=== PATIENT | male | born 1995 | race Caucasian/White ===

== ENCOUNTER 2018-09-03 10:57 | Day surgery (SDC) | payer OTHER ==
[2018-08-30 15:50] VITALS: BMI 27.4
[~2018-09-03 10:57] MED LIST: LACTATED RINGERS 1,000 ML IV SCH; LIDOCAINE 1% 20 ML VIAL (10MG/ML) FOR IV START INTRADERMA PRN; MIDAZOLAM 2 MG/2 ML VIAL IV PRN
[2018-09-03 12:39] VITALS: RESP 16; TEMP 98.7
[2018-09-03] MEDS ORDERED: PROPOFOL 10 MG/ML 20 ML VIAL IV ONE (14:10)
[2018-09-03 14:57] VITALS: BP 104/59; PULSE 67
--- NOTE | 2018-09-03 14:58 | P.PCN ---
Date of Procedure: 09/03/18 Procedure(s) Performed: Procedure: Colonoscopy and biopsy. Preoperative diagnosis: Bloody diarrhea. Postoperative diagnosis: Left-sided colitis probably representing ulcerative colitis. Preparation: HalfLytely prep. Sedation: Was provided by anesthesia. Brief clinical history: The patient is a 23-year-old male who was evaluated in the office last week because of bloody diarrhea of around 1-2 weeks duration. The patient is scheduled for this evaluation for suspected ulcerative colitis. Procedure: With the patient on his left lateral decubitus position and after informed consent and adequate sedation, the perianal area was inspected and it did not show any fissures or fistulas. There were no masses felt on digital rectal examination. The Olympus CFH 190L video colonoscope was then inserted in the rectum in the usual fashion and advanced to the cecum. I intubated the ileocecal valve and examined the terminal ileum. The terminal ileum was not involved so was the right colon, transverse colon and the proximal descending. Starting at around 50-60 cm and involving the left side and rectum, the mucosa showed edema, erythema, granularity, friability, exudation and spontaneous bleeding. Proximal to the area of involvement as mentioned, the mucosa appeared healthy. I obtained a picture and multiple biopsies in the sigmoid then the endoscope was withdrawn. The patient tolerated the procedure well. Plan: I discussed the findings with the patient and his dad. While awaiting the biopsy results, I would suggest that we treat as ulcerative colitis of moderate to severe activity. Certainly, infectious etiology and other causes of colitis to be kept in mind. I will keep you updated on his progress.
== END 2018-09-03 15:35 | disposition home or self-care (01) ==
LOC: ORWHC2ENDO 10:57
DX: K51.511 Left sided colitis with rectal bleeding (principal); K21.9 Gastro-esophageal reflux disease without esophagitis; Z79.1 Long term (current) use of non-steroidal anti-inflammatories (NSAID)
CPT/HCPCS: 45380; 88305; J2704

== ENCOUNTER 2018-09-07 15:22 | Inpatient (IN) | payer OTHER ==
[2018-09-07] MEDS ORDERED: SODIUM CHLORIDE 0.9% 500 ML 500 ML IV STA (18:18)
[2018-09-07] MEDS ORDERED: ASPIRIN 81 MG PO STA (18:18)
--- NOTE | 2018-09-07 18:31 | XR ---
EXAMINATION: XR chest 2V DATE AND TIME: 09/07/2018 6:15 PM CLINICAL INDICATION: PHH; Pain TECHNIQUE: Departmental protocol COMPARISON: None FINDINGS: The lungs are clear. The pleural spaces are negative. The cardiac silhouette is not enlarged. The remainder of the mediastinal silhouette is unremarkable. The skeletal structures and soft tissues are negative for acute findings. IMPRESSION: NO ACUTE PROCESS.
--- NOTE | 2018-09-07 19:08 | ED ---
General Adult HPI - General Source: patient, RN notes reviewed, old records reviewed Mode of arrival: ambulatory Limitations: no limitations <Bishop Nguyen - Last Filed: 09/07/18 23:47> <John Easton - Last Filed: 09/09/18 08:29> - General Chief complaint: Chest Pain Stated complaint: Chest pain Time Seen by Provider: 09/07/18 18:01 - History of Present Illness Initial comments: 23-year-old male patient with past history of ulcerative colitis presents ED with chief complaint of chest pain. Patient reports that approximately 3 PM today he began experiencing left parasternal chest pain which radiates down his left arm. Patient describes the pain as a sharp stabbing pain. Patient states that the pain is waxing and waning however initially lasted for approximately 1 hour. Patient states that at this time the pain is mostly resolved a very mild dull left parasternal pain is currently present. Patient states this is much improved then had previously was. Patient denies any cough, congestion, nausea vomiting diarrhea, diaphoresis. Patient denies any association with exertion. Denies any pleuritic pain. Patient states that he has had previous complains of chest pain over the past 1 year and has had prior evaluations at [facility] for this. Denies any other complaints at this time. Systemic: Pt denies fatigue, fever/chills, rash. Pt denies weakness, night sweats, weight loss. Neuro: Pt denies headache, visual disturbances, syncope or pre-syncope. HEENT: Pt denies ocular discharge or irritation, otalgia, rhinorrhea, pharyngitis or notable lymphadenopathy. Cardiopulmonary: Pt denies SOB, heart palpitations, dyspnea on exertion. Abdominal/GI: Pt denies abdominal pain, n/v/d. : Pt denies dysuria, burning w/ urination, frequency/urgency. Denies new onset urinary or bowel incontinence. MSK: Pt denies myalgia, loss of strength or function in extremities. Neuro: Pt denies new onset weakness, paresthesias. (Bishop Nguyen) - Related Data Home Medications Medication Instructions Recorded Confirmed sulfaSALAzine [Azulfidine] 1,000 mg PO QID 09/07/18 09/07/18 Allergies Allergy/AdvReac Type Severity Reaction Status Date / Time No Known Allergies Allergy Verified 06/28/19 18:07 Review of Systems ROS Other: All systems not noted in ROS Statement are negative. <Bishop Nguyen - Last Filed: 09/07/18 23:47> ROS Other: All systems not noted in ROS Statement are negative. <John Easton - Last Filed: 09/09/18 08:29> ROS Statement: Those systems with pertinent positive or pertinent negative responses have been documented in the HPI. Past Medical History Past Medical History: Chest Pain / Angina, GI Bleed Additional Past Medical History / Comment(s): OCC CP, CARDIAC TESTING NL - TOLD POSS GERD, RX DIDN'T HELP. BLOOD IN STOOL FOR PAST WEEK. History of Any Multi-Drug Resistant Organisms: None Reported Additional Past Surgical History / Comment(s): WISDOM TEETH. Past Anesthesia/Blood Transfusion Reactions: No Reported Reaction Past Psychological History: No Psychological Hx Reported Smoking Status: Never smoker Past Alcohol Use History: Occasional Past Drug Use History: None Reported - Past Family History Mother Family Medical History: No Reported History <Bishop Nguyen - Last Filed: 09/07/18 23:47> General Exam Limitations: no limitations <Bishop Nguyen - Last Filed: 09/07/18 23:47> - General Exam Comments Initial Comments: Constitutional: NAD, AOX3, Pt has pleasant affect. HEENT: NC/AT, trachea midline, neck supple, no lymphadenopathy. Posterior pharynx non erythematous, without exudates. External ears appear normal, without discharge. Mucous membranes moist. Eyes PERRLA, EOM intact. There is no scleral icterus. No pallor noted. Cardiopulmonary: RRR, no murmurs, rubs or gallops, no JVD noted. Lungs CTAB in anterior and posterior reyes. No peripheral edema. Abdominal exam: Abdomen soft and non-distended. Abdomen non-tender to palpation in all 4 quadrants. Bowel sounds active in LLQ. No hepatosplenomegaly. No ecchymosis Neuro: CN II-XII grossly intact. No nuchal rigidity. No raccon eyes, no christensen sign, no hemotympanum. No cervical spinal tenderness. MSK: No posterior calf tenderness bilaterally, homans sign negative bilaterally. Posterior tibialis and radial pulse +2 bilaterally. Sensation intact in upper and lower extremities. Full active ROM in upper and lower extremities, 5/5 stregnth. (Bishop Nguyen) Course Vital Signs 09/07/18 09/07/18 09/07/18 16:20 19:14 21:05 Temperature 99.0 F 98.7 F 98.8 F Pulse Rate 89 96 89 Respiratory 18 18 18 Rate Blood Pressure 126/65 134/82 130/74 O2 Sat by Pulse 98 98 96 Oximetry 09/07/18 09/08/18 09/08/18 22:11 00:07 03:21 Temperature 98.9 F 99.0 F 98.2 F Pulse Rate 83 85 80 Respiratory 18 18 17 Rate Blood Pressure 129/80 144/86 128/92 O2 Sat by Pulse 96 96 96 Oximetry 09/08/18 09/08/18 06:48 11:04 Temperature 97.8 F 98.2 F Pulse Rate 56 L 71 Respiratory 18 18 Rate Blood Pressure 115/66 117/76 O2 Sat by Pulse 96 97 Oximetry Medical Decision Making - Lab Data Result diagrams: 09/07/18 18:49 09/07/18 18:49 - EKG Data -: EKG Interpreted by Me (and Dr. Senior) <Bishop Nguyen - Last Filed: 09/07/18 23:47> - Lab Data Result diagrams: 09/07/18 18:49 09/07/18 18:49 <John Easton - Last Filed: 09/09/18 08:29> - Medical Decision Making 23-year-old male patient with past history of ulcerative colitis presents ED with chief complaint of chest pain. Patient reports that approximately 3 PM today he began experiencing left parasternal chest pain which radiates down his left arm. Patient describes the pain as a sharp stabbing pain. Patient states that the pain is waxing and waning however initially lasted for approximately 1 hour. Patient states that at this time the pain is mostly resolved a very mild dull left parasternal pain is currently present. Patient states this is much improved then had previously was. Patient denies any cough, congestion, nausea vomiting diarrhea, diaphoresis. Patient denies any association with exertion. Denies any pleuritic pain. Patient states that he has had previous complains of chest pain over the past 1 year and has had prior evaluations at [facility] for this. Denies any other complaints at this time. Patient doesn't stable, afebrile. Physical exam did not acute pathology. Laboratory investigation revealed mild depressive CBC, CMP. Coagulation studies non-impressive. D-dimer mildly elevated at 0.77. BNP 20. Initial troponin mildly elevated at 0.1. R epeat troponin 3 hours later 0.65. Initial EKG displayed ST elevaton in V2 without recriprocal changes. No significant change from prior EKG on 11/23/17. Repeat EKG is unchanged. Chest x-ray, CT pulmonary angiography did not display acute process. Patient administered 1 dose of Lovenox. Patient is pain-free. Patient will be admitted for May troponins and cardiology consultation. Case discussed with Dr. Senior. (Bishop Nguyen) I saw this patient in conjunction with the physician social science research assistant. I performed independent history and physical exam. Agree with case management. (John Easton) - Lab Data Lab Results 09/07/18 09/07/18 09/07/18 Range/Units 18:49 18:49 18:49 WBC 9.4 (3.8-10.6) k/uL RBC 4.81 (4.30-5.90) m/uL Hgb 14.0 (13.0-17.5) gm/dL Hct 42.7 (39.0-53.0) % MCV 88.6 (80.0-100.0) fL MCH 29.1 (25.0-35.0) pg MCHC 32.8 (31.0-37.0) g/dL RDW 12.5 (11.5-15.5) % Plt Count 327 (150-450) k/uL Neutrophils % 65 % Lymphocytes % 25 % Monocytes % 5 % Eosinophils % 3 % Basophils % 1 % Neutrophils # 6.1 (1.3-7.7) k/uL Lymphocytes # 2.3 (1.0-4.8) k/uL Monocytes # 0.5 (0-1.0) k/uL Eosinophils # 0.3 (0-0.7) k/uL Basophils # 0.1 (0-0.2) k/uL PT 10.7 (9.0-12.0) sec INR 1.0 (<1.2) APTT 24.3 (22.0-30.0) sec D-Dimer 0.77 H (<0.60) mg/L FEU Sodium 142 (137-145) mmol/L Potassium 4.6 (3.5-5.1) mmol/L Chloride 107 (98-107) mmol/L Carbon Dioxide 23 (22-30) mmol/L Anion Gap 12 mmol/L BUN 9 (9-20) mg/dL Creatinine 0.66 (0.66-1.25) mg/dL Est GFR (CKD-EPI)AfAm >90 (>60 ml/min/1.73 sqM) Est GFR (CKD-EPI)NonAf >90 (>60 ml/min/1.73 sqM) Glucose 88 (74-99) mg/dL Calcium 9.6 (8.4-10.2) mg/dL Magnesium 1.9 (1.6-2.3) mg/dL Total Bilirubin 0.4 (0.2-1.3) mg/dL AST 35 (17-59) U/L ALT 42 (21-72) U/L Alkaline Phosphatase 84 (38-126) U/L Troponin I (0.000-0.034) ng/mL NT-Pro-B Natriuret Pep pg/mL Total Protein 7.5 (6.3-8.2) g/dL Albumin 4.5 (3.5-5.0) g/dL 09/07/18 09/07/18 09/07/18 Range/Units 18:49 18:49 22:00 WBC (3.8-10.6) k/uL RBC (4.30-5.90) m/uL Hgb (13.0-17.5) gm/dL Hct (39.0-53.0) % MCV (80.0-100.0) fL MCH (25.0-35.0) pg MCHC (31.0-37.0) g/dL RDW (11.5-15.5) % Plt Count (150-450) k/uL Neutrophils % % Lymphocytes % % Monocytes % % Eosinophils % % Basophils % % Neutrophils # (1.3-7.7) k/uL Lymphocytes # (1.0-4.8) k/uL Monocytes # (0-1.0) k/uL Eosinophils # (0-0.7) k/uL Basophils # (0-0.2) k/uL PT (9.0-12.0) sec INR (<1.2) APTT (22.0-30.0) sec D-Dimer (<0.60) mg/L FEU Sodium (137-145) mmol/L Potassium (3.5-5.1) mmol/L Chloride (98-107) mmol/L Carbon Dioxide (22-30) mmol/L Anion Gap mmol/L BUN (9-20) mg/dL Creatinine (0.66-1.25) mg/dL Est GFR (CKD-EPI)AfAm (>60 ml/min/1.73 sqM) Est GFR (CKD-EPI)NonAf (>60 ml/min/1.73 sqM) Glucose (74-99) mg/dL Calcium (8.4-10.2) mg/dL Magnesium (1.6-2.3) mg/dL Total Bilirubin (0.2-1.3) mg/dL AST (17-59) U/L ALT (21-72) U/L Alkaline Phosphatase (38-126) U/L Troponin I 0.103 H* 0.065 H* (0.000-0.034) ng/mL NT-Pro-B Natriuret Pep 20 pg/mL Total Protein (6.3-8.2) g/dL Albumin (3.5-5.0) g/dL - EKG Data EKG Comments: 1) ventricular rate 83, NV interval 154, QRS 86, QT/QTC 3:30/387. ST elevation in V2. No recripocalchanges.No change from prior EKG on 11/23/17 2) ventricular rate 91, NV interval 176, QRS 92, QT/QTC 336/414. ST elevation in V2, no recriprocal changes. No change from prior EKG on 11/23/17 (Bishop Nguyen) Disposition Is patient prescribed a controlled substance at d/c from ED?: No <Bishop Nguyen - Last Filed: 09/07/18 23:47> <John Easton - Last Filed: 09/09/18 08:29> Clinical Impression: Chest pain Disposition: ADMITTED IP TO THIS [facility] Condition: Serious
[2018-09-07 19:17] LABS: Basophils # (A) 0.1 k/uL (0-0.2); Basophils % (A) 1 %; Eosinophils # (A) 0.3 k/uL (0-0.7); Eosinophils % (A) 3 %; HCT 42.7 % (39.0-53.0); Lymphocytes # (A) 2.3 k/uL (1.0-4.8); Lymphocytes % (A) 25 %; MCH 29.1 pg (25.0-35.0); MCHC 32.8 g/dL (31.0-37.0); MCV 88.6 fL (80.0-100.0); Mean Platelet Volume 8.5; Monocytes # (A) 0.5 k/uL (0-1.0); Monocytes % (A) 5 %; Neutrophils # (A) 6.1 k/uL (1.3-7.7); Neutrophils % (A) 65 %; Platelet Count 327 k/uL (150-450); RBC 4.81 m/uL (4.30-5.90); RDW 12.5 % (11.5-15.5); WBC 9.4 k/uL (3.8-10.6)
[2018-09-07 19:32] LABS: Partial Thromboplastin Time 24.3 sec (22.0-30.0); Prothrombin Time 10.7 sec (9.0-12.0)
[2018-09-07 19:37] LABS: ALT 42 U/L (21-72); AST 35 U/L (17-59); African American GFR (CKD) >90 (>60 ml/min/1.73 sqM); Albumin 4.5 g/dL (3.5-5.0); Alkaline Phosphatase 84 U/L (38-126); Anion Gap 12 mmol/L; Blood Urea Nitrogen 9 mg/dL (9-20); Calcium 9.6 mg/dL (8.4-10.2); Carbon Dioxide 23 mmol/L (22-30); Chloride 107 mmol/L (98-107); Glucose 88 mg/dL (74-99); Magnesium 1.9 mg/dL (1.6-2.3); Potassium 4.6 mmol/L (3.5-5.1); Sodium 142 mmol/L (137-145); Total Bilirubin 0.4 mg/dL (0.2-1.3); Total Protein 7.5 g/dL (6.3-8.2)
[2018-09-07 19:59] LABS: D-Dimer 0.77 mg/L FEU (<0.60)
[2018-09-07] MEDS ORDERED: HEPARIN SODIUM,PORCINE 5,000 UNIT/ML 1 ML VIAL IV ONE (20:23)
[2018-09-07] MEDS ORDERED: HEPARIN SODIUM,PORCINE 5,000 UNIT/ML 1 ML VIAL IV PRN (20:23)
[2018-09-07] MEDS ORDERED: HEPARIN SOD,PORK IN 0.45% NACL 25,000 UNIT in 0.45% NACL 1 250ML.BAG IV SCH (20:30)
[2018-09-07] MEDS ORDERED: NITROGLYCERIN SL TABS 0.4 MG TAB SUBLINGUAL STA (20:55)
--- NOTE | 2018-09-07 21:20 | CT ---
EXAMINATION TYPE: CT chest angio for PE with contrast and with 3-D reconstruction renderings DATE OF EXAM: 09/07/2018 COMPARISON: There is no fracture or intracranial hemorrhage. No mass or mass effect or new attenuatio n defect. HISTORY: chest pain, elevated d-dimer CT DLP: 617.6 mGycm Automated exposure control for dose reduction was used. CONTRAST: CT Chest for pulmonary embolism performed with with IV Contrast, patient injected with 100 mL of Isovue 370. FINDINGS: LUNGS: The lungs are grossly clear, there is no concerning parenchymal mass or nodule identified. T here is no pleural effusion or pneumothorax seen. The tracheobronchial tree is patent. MEDIASTINUM: There is mild-moderate enhancement of the pulmonary artery and its branches, with no CT evidence for pulmonary embolism as seen. No acute aortic findings. There are no greater than 1 cm hil ar or mediastinal lymph nodes. No cardiomegaly. No pericardial effusion is seen. OTHER: No skeletal findings or other additional significant abnormality is seen. IMPRESSION: No acute process.
[2018-09-07] MEDS ORDERED: ENOXAPARIN 80 MG/0.8 ML SYRINGE SQ SCH (21:30)
[2018-09-07] MEDS ORDERED: NITROGLYCERIN SL TABS 0.4 MG TAB SUBLINGUAL PRN (23:15)
[2018-09-08] MEDS ORDERED: sulfaSALAzine 500 MG TAB PO SCH (00:30)
[2018-09-08 04:06] LABS: Cholesterol 140 mg/dL (<200); HDL Cholesterol 42 mg/dL (40-60); LDL Cholesterol,Calculated 84 mg/dL (0-99); Triglycerides 71 mg/dL (<150)
[2018-09-08] MEDS: sulfaSALAzine 500 MG TAB PO SCH ×5 (06:52→21:22)
--- NOTE | 2018-09-08 09:24 | P.CRDCN ---
History of Present Illness Consult date: 09/08/18 Consult reason: chest pain (Elevated troponins) Chief complaint: Chest pain History of present illness: HPI: This is a 23-year-old male patient with past medical history significant for ulcerative colitis. Patient gives history of recent be undergoing colonoscopy on Monday due to rectal bleeding that was bright red and then he started sulfasalazine on Monday. Rectal bleeding stopped as of . The patient complains of left-sided chest pain in the left chest wall radiating into the left upper arm sometimes into his fingertips and shoulder blade. He also states he sometimes feels it in his left jaw. He has been worked up at [facility] in the past. Previous echocardiogram done here in January 2018 revealed EF of 55-60%. The patient states he has had this chest pain for the past year. He denies having any shortness of breath, diaphoresis, nausea or vomiting. He denies any family history of coronary artery disease. Patient is a nonsmoker. He drinks alcohol occasionally last time was 3 weeks ago. EKG reveals sinus mechanism with early repolarization. Laboratory studies: Troponin is 0.103, 0.065, 0.026, d-dimer 0.77, creatinine 0.6, hemoglobin 14.0. Triglycerides 71, cholesterol 140, LDL 84, HDL 42. Imaging studies: Chest x-ray normal, CTA of the chest normal. Review Of Systems: Constitutional: No fever, no chills, no night sweats. No weight change. No weakness, fatigue or lethargy. No daytime sleepiness. EENT: No headache. No blurred vision or double vision, no loss of vision. No loss of Hearing, no ringing in the ears, no dizziness. No nasal drainage or congestion. No epistaxis. No sore throat. Lungs: No shortness of breath, cough, no sputum production. No wheezing. Cardiovascular: Reports chest pain, no lower extremity edema. No palpitations. No paroxysmal nocturnal dyspnea. No orthopnea. No lightheadedness or dizziness. No syncopal episodes. Abdominal: No abdominal pain. No nausea, vomiting. No diarrhea. No constipation. Recent rectal bleeding No loss of appetite. Genitourinary: No dysuria, increased frequency, urgency. No urinary retention. Musculoskeletal: No myalgias. No muscle weakness, no gait dysfunction, no frequent falls. No back pain. No neck pain. Integumentary: No wounds, no lesions. No rash or pruritus. No unusual bruising. No change in hair or nails. Neurologic: No aphasia. No facial droop. No change in mentation. No head injury. No headache. No paralysis. No paresthesia. Psychiatric: No depression. No anxiety. No mood swings. Endocrine: No abnormal blood sugars. No weight change. No excessive sweating or thirst. No cold intolerance. No weight change. Physical exam: Gen: This is a 23-year-old male. He is resting comfortably on the ER stretcher appears to be in no acute distress HEENT: Head is atraumatic, normocephalic. Pupils equal, round. Sclerae is anicteric. Conjunctiva pink. Mucous members of the mouth are moist. NECK: Supple. No JVD. No lymphadenopathy. No thyromegaly. LUNGS: Clear to auscultation. No wheezes or rhonchi. No intercostal retractions. HEART: Regular rate and rhythm. No murmur. No rub. Point tenderness left chest wall. ABDOMEN: Soft. Bowel sounds are present. No masses. No tenderness. EXTREMITIES: No pedal edema. No calf tenderness. Dorsalis pedis +2 bilaterally NEUROLOGICAL: Patient is awake, alert and oriented x3. Cranial nerves 2 through 12 are grossly intact. Assessment: Atypical chest pain, troponins not indicative of cardiac ischemia. No clear-cut evidence of pericarditis. History of ulcerative colitis recently diagnosed and started on medication. Plan: No plan for IV heparin. Start heparin 5000 units subcu every 12 hours. Obtain 2-D echocardiogram and Doppler study to assess cardiac structures and function. If echocardiogram is unremarkable, patient is cleared for discharge from c ardiology perspective. Nurse practitioner note has been reviewed, I agree with documented findings and plan of care. Patient was seen and examined. Past Medical History Past Medical History: Chest Pain / Angina, GI Bleed Additional Past Medical History / Comment(s): OCC CP, CARDIAC TESTING NL - TOLD POSS GERD, RX DIDN'T HELP. BLOOD IN STOOL FOR PAST WEEK. History of Any Multi-Drug Resistant Organisms: None Reported Additional Past Surgical History / Comment(s): WISDOM TEETH. Past Anesthesia/Blood Transfusion Reactions: No Reported Reaction Past Psychological History: No Psychological Hx Reported Smoking Status: Never smoker Past Alcohol Use History: Occasional Past Drug Use History: None Reported - Past Family History Mother Family Medical History: No Reported History Medications and Allergies Home Medications Medication Instructions Recorded Confirmed Type sulfaSALAzine [Azulfidine] 1,000 mg PO QID 09/07/18 09/07/18 History Allergies Allergy/AdvReac Type Severity Reaction Status Date / Time No Known Allergies Allergy Verified 09/07/18 18:07 Physical Exam Vitals: Vital Signs Temp Pulse Resp BP Pulse Ox 09/08/18 06:48 97.8 F 56 L 18 115/66 96 09/08/18 03:21 98.2 F 80 17 128/92 96 09/08/18 00:07 99.0 F 85 18 144/86 96 09/07/18 22:11 98.9 F 83 18 129/80 96 09/07/18 21:05 98.8 F 89 18 130/74 96 09/07/18 19:14 98.7 F 96 18 134/82 98 09/07/18 16:20 99.0 F 89 18 126/65 98 Intake and Output 09/07/18 09/08/18 09/08/18 22:59 06:59 14:59 Other: Weight 81.647 kg Results 09/07/18 18:49 09/07/18 18:49 Cardiac Enzymes 09/07/18 09/07/18 09/07/18 Range/Units 18:49 18:49 22:00 AST 35 (17-59) U/L Troponin I 0.103 H* 0.065 H* (0.000-0.034) ng/mL 09/08/18 Range/Units 03:38 AST (17-59) U/L Troponin I 0.026 (0.000-0.034) ng/mL Coagulation 09/07/18 Range/Units 18:49 PT 10.7 (9.0-12.0) sec APTT 24.3 (22.0-30.0) sec Lipids 09/08/18 Range/Units 03:37 Triglycerides 71 (<150) mg/dL Cholesterol 140 (<200) mg/dL HDL Cholesterol 42 (40-60) mg/dL CBC 09/07/18 Range/Units 18:49 WBC 9.4 (3.8-10.6) k/uL RBC 4.81 (4.30-5.90) m/uL Hgb 14.0 (13.0-17.5) gm/dL Hct 42.7 (39.0-53.0) % Plt Count 327 (150-450) k/uL Comprehensive Metabolic Panel 09/07/18 Range/Units 18:49 Sodium 142 (137-145) mmol/L Potassium 4.6 (3.5-5.1) mmol/L Chloride 107 (98-107) mmol/L Carbon Dioxide 23 (22-30) mmol/L BUN 9 (9-20) mg/dL Creatinine 0.66 (0.66-1.25) mg/dL Glucose 88 (74-99) mg/dL Calcium 9.6 (8.4-10.2) mg/dL AST 35 (17-59) U/L ALT 42 (21-72) U/L Alkaline Phosphatase 84 (38-126) U/L Total Protein 7.5 (6.3-8.2) g/dL Albumin 4.5 (3.5-5.0) g/dL Current Medications Generic Name Dose Route Start Last Admin Trade Name Freq PRN Reason Stop Dose Admin Aspirin 325 mg 09/08/18 09:00 Aspirin PO DAILY [facility]COSTA Heparin Sodium (Porcine) 5,000 unit 09/08/18 09:00 Heparin SQ Q12HR [facility]COSTA Nitroglycerin 0.4 mg 09/07/18 23:15 Nitrostat SUBLINGUAL Q5M PRN Chest Pain Sulfasalazine 1,000 mg 09/08/18 06:00 09/08/18 08:56 Azulfidine PO 12/16/18 06:01 Not Given QID ACOSTA Intake and Output 09/07/18 09/08/18 09/08/18 22:59 06:59 14:59 Other: Weight 81.647 kg 09/07/18 18:49 09/07/18 18:49
[2018-09-08] MEDS: ASPIRIN 325 MG TAB PO SCH (09:31)
[2018-09-08] MEDS: HEPARIN SODIUM,PORCINE 5,000 UNIT/ML 1 ML VIAL SQ SCH ×2 (09:32→21:22)
[2018-09-08 12:08] VITALS: BMI 27.0
[2018-09-08] MEDS ORDERED: HEPARIN SODIUM,PORCINE 5,000 UNIT/ML 1 ML VIAL SQ SCH (16:00)
--- NOTE | 2018-09-08 16:15 | P.HPIM ---
History of Present Illness H&P Date: 09/08/18 Chief Complaint: Chest pain Patient is a 23-year-old male with a known history of GI bleed, recently diagnosed ulcerative colitis status post colonoscopy by Dr. Vega about a week ago and is currently on sulfasalazine with controlled diarrhea came to ER with complaints of chest pain mainly left retrosternal and radiating down the left arm, felt tingling sensation in the fingers.. Patient does have sharp stabbing type of pain lasting approximately for 1 hour. Patient says that he has been having on and off chest pains for about a year that is even before colonoscopy. Patient had previous workup done at [facility]. He echocardiogram in January 2018 showed ejection fraction of 55-60% and no wall motion abnormalities were noted. Patient says that she did not get any relief with Tums. Denied any nausea vomiting or diarrhea or diaphoresis. No headache or dizziness or lightheadedness. No orthopnea no PND. No leg swelling. Patient says that sometimes she gets pain with deep palpation of the chest. Currently denied any complaints of chest pain or shortness of breath. Denied any family history of coronary artery disease. Denied alcohol drugs IV DU. EKG showed normal sinus rhythm. Troponin 0.103, 0.065 and 0.026 and 0.012, D-dimer 0.77, CTA chest is negative for any pulmonary embolism. LDL 84 Review of Systems Constitutional: Patient denies any fever or chills . No generalized weakness or weight loss. Abdomen: Patient denied nausea vomiting and diarrhea and abdominal pain. Cardiovascular: Patient denies any chest pain or short of breath no palpitations. Respiratory: patient denied any cough is from production. No shortness of breath Neurologic: Patient denied any numbness or tingling headache. Musculoskeletal: Patient denies any complaints of joint swelling or deformity. Skin: Negative Psychiatric: Negative Endocrine: No heat or cold intolerance. No recent weight gain. Genitourinary: No dysuria or hematuria. All other 14 point ROS negative except the above Past Medical History Past Medical History: Chest Pain / Angina, GI Bleed Additional Past Medical History / Comment(s): OCC CP, CARDIAC TESTING NL - TOLD POSS GERD, RX DIDN'T HELP. BLOOD IN STOOL FOR PAST WEEK. History of Any Multi-Drug Resistant Organisms: None Reported Additional Past Surgical History / Comment(s): WISDOM TEETH. Past Anesthesia/Blood Transfusion Reactions: No Reported Reaction Past Psychological History: No Psychological Hx Reported Smoking Status: Never smoker Past Alcohol Use History: Occasional Past Drug Use History: None Reported - Past Family History Mother Family Medical History: No Reported History Medications and Allergies Home Medications Medication Instructions Recorded Confirmed Type sulfaSALAzine [Azulfidine] 1,000 mg PO QID 09/07/18 09/07/18 History Allergies Allergy/AdvReac Type Severity Reaction Status Date / Time No Known Allergies Allergy Verified 09/07/18 18:07 Physical Exam Vitals: Vital Signs Temp Pulse Pulse Resp BP BP Pulse Ox 09/08/18 12:00 98.1 F 64 16 125/65 97 09/08/18 11:04 98.2 F 71 18 117/76 97 09/08/18 06:48 97.8 F 56 L 18 115/66 96 09/08/18 03:21 98.2 F 80 17 128/92 96 09/08/18 00:07 99.0 F 85 18 144/86 96 09/07/18 22:11 98.9 F 83 18 129/80 96 09/07/18 21:05 98.8 F 89 18 130/74 96 09/07/18 19:14 98.7 F 96 18 134/82 98 09/07/18 16:20 99.0 F 89 18 126/65 98 Intake and Output 09/08/18 09/08/18 09/08/18 06:59 14:59 22:59 Other: Voiding Method Toilet PHYSICAL EXAMINATION: Patient is lying in the bed comfortably, no acute distress, awake alert and oriented.. HEENT: Normocephalic. Neck is supple. Pupils reactive. Nostrils clear. Oral cavity is moist. Ears reveal no drainage. Neck reveals no JVD, carotid bruits, or thyromegaly. CHEST EXAMINATION: Trachea is central. Symmetrical expansion. Lung reyes clear to auscultation and percussion. CARDIAC: Normal S1, S2 with no gallops. No murmurs ABDOMEN: Soft. Bowel sounds normal. No organomegaly. No abdominal bruits. Extremities: reveal no edema. No clubbing or cyanosis Neurologically awake, alert, oriented x3 with well-coordinated movements. No focal deficits noted Skin: No rash or skin lesions. Psychiatric: Coperative. Nonsuicidal Musculoskeletal: No joint swelling or deformity. Normal range of motion. Results CBC & Chem 7: 09/07/18 18:49 09/07/18 18:49 Labs: Abnormal Lab Results - Last 24 Hours (Table) 09/07/18 09/07/18 09/07/18 Range/Units 18:49 18:49 22:00 D-Dimer 0.77 H (<0.60) mg/L FEU Troponin I 0.103 H* 0.065 H* (0.000-0.034) ng/mL Thrombosis Risk Factor Assmnt - DVT/VTE Prophylaxis DVT/VTE Prophylaxis: Pharmacologic Prophylaxis ordered Assessment and Plan Assessment: Atypical chest pain with elevated troponin level. Rule out acute pericarditis. Recently diagnosed ulcerative colitis about a week ago. Currently on sulfasalazine with improvement in symptoms Slightly elevated d-dimer. CTA negative for any pulmonary embolism DVT prophylaxis with heparin subcu Plan: Patient will be continued on the monitor. Troponin level is trending down to 0.012. Cardiology has seen the patient and 2-D echocardiogram was ordered. Also rule out acute pericarditis. Continue with home medications including sulfasalazine and follow closely. Further recommendations based on the clinical course. Time with Patient: Greater than 30
[2018-09-09 07:48] VITALS: BP 112/53; PULSE 61; RESP 18; TEMP 98.1
--- NOTE | 2018-09-09 07:57 | ECHOF ---
Referral Reason:chest pain MEASUREMENTS -------- HEIGHT: 175.3 cm WEIGHT: 81.6 kg BP: RVIDd: 2.3 cm (< 3.3) IVSd: 1.1 cm (0.6 - 1.1) LVIDd: 4.4 cm (3.9 - 5.3) LVPWd: 1.0 cm (0.6 - 1.1) IVSs: 1.6 cm LVIDs: 2.8 cm LVPWs: 1.4 cm LA Diam: 3.2 cm (2.7 - 3.8) Ao Diam: 2.7 cm (2.0 - 3.7) AV Cusp: 2.3 cm (1.5 - 2.6) MV EXCURSION: 16.920 mm (> 18.000) MV EF SLOPE: 125 mm/s (70 - 150) EPSS: 1.0 cm MV E Lewis: 0.97 m/s MV DecT: 249 ms MV A Lewis: 0.58 m/s MV E/A Ratio: 1.69 FINDINGS -------- Sinus rhythm. This was a technically good study. The left ventricular size is normal. Left ventricular wall thickness is normal. Overall left vent ricular systolic function is normal with, an EF between 60 - 65 %. The right ventricle is normal in size. The left atrial size is normal. The right atrium is normal in size. Interatrial and interventricular septum intact. The aortic valve is trileaflet and appears structurally normal. The mitral valve is normal. The tricuspid valve appears structurally normal. Trace/mild (physiologic) pulmonic regurgitation. The aortic root size is normal. Normal inferior vena cava with normal inspiratory collapse consistent with estimated right atrial pre ssure of 5 mmHg. There is no pericardial effusion. CONCLUSIONS -------- 1. Sinus rhythm. 2. This was a technically good study. 3. The left ventricular size is normal. 4. Left ventricular wall thickness is normal. 5. Overall left ventricular systolic function is normal with, an EF between 60 - 65 %. 6. The right ventricle is normal in size. 7. The left atrial size is normal. 8. The right atrium is normal in size. 9. Interatrial and interventricular septum intact. 10. The aortic valve is trileaflet and appears structurally normal. 11. The mitral valve is normal. 12. The tricuspid valve appears structurally normal. 13. Trace/mild (physiologic) pulmonic regurgitation. 14. The aortic root size is normal. 15. Normal inferior vena cava with normal inspiratory collapse consistent with estimated right atrial pressure of 5 mmHg. 16. There is no pericardial effusion. A R SPECIALIST: Mayelin Nath RDCS
[2018-09-09] MEDS: ASPIRIN 325 MG TAB PO SCH (08:31)
[2018-09-09] MEDS: HEPARIN SODIUM,PORCINE 5,000 UNIT/ML 1 ML VIAL SQ SCH (08:31)
[2018-09-09] MEDS: sulfaSALAzine 500 MG TAB PO SCH (08:31)
[2018-09-09] MEDS ORDERED: KETOROLAC 30 MG/ML 1 ML VIAL IVP STA (10:50)
--- NOTE | 2018-09-09 11:26 | PN ---
PROGRESS NOTE This gentleman has some pain in the chest today also, but the pain is very mild, atypical, sharp in nature, seems musculoskeletal. His troponin profile is somewhat equivocal, does not suggest myocardial injury. EKG does not support any acute myocardial injury. Echo revealed normal systolic function. Vital signs stable. No orthostatic changes. S1, S2 heard normally. Lungs are clear. Abdomen and lower extremity exam unchanged. Unlikely to be pericarditis. I am recommending that we can discharge him. Increase oral fluids and perform a stress echo on Monday. I discussed my thoughts in detail with the patient and family. MMODL / IJN: [id number] /
[2018-09-09] MEDS ORDERED: IBUPROFEN 600 MG TAB PO STA (11:30)
== END 2018-09-09 11:42 | disposition home or self-care (01) | DRG 313 ==
LOC: EC 15:22 → 3SCARD 23:19
PROVIDERS: ADMIT Internal Medicine; ATTEND Internal Medicine
DX: R07.89 Other chest pain (principal); K51.90 Ulcerative colitis, unspecified, without complications; R77.9 Abnormality of plasma protein, unspecified
CPT/HCPCS: 36415; 71046; 71275; 80053; 80061; 82272; 83735; 83880; 84484; 85025; 85379; 85610; 85730; 93005; 93306; 94760; 96360; 96361; 96372; 99285

== ENCOUNTER → 2018-09-24 | Outpatient (CLI) | payer OTHER ==
--- NOTE | 2018-09-24 10:50 | P.STRESS ---
- Stress Test Note Stress Test Results/Findings: Exam Performed: stress echo exercise Exam Date: 09/24/18 Reason for Exam: CHEST PAIN Height: 5 ft 9 in Weight: 83.461 kg Protocol: ADOLFO Stage: 3 Duration of Exercise: 9:00 Resting Heart Rate: 93 Resting Blood Pressure: 128/45 Maximum Achieved Heart Rate: 180 Maximum Achieved Blood Pressure: 197/52 85% PMHR: 169 100% PMHR: 199 METS: 9.7 Technologist Comment: Stress Test Results/Findings: This is a 23-year-old gentleman being evaluated for symptoms of chest pain. No risk factors. Stress data: Baseline EKG showed sinus rhythm with some early repolarization the inferior lateral leads. Blood pressure at rest is 128/45 with a pulse rate of 93. Patient walked on the Adolfo protocol for 9 minutes achieving a maximal rate of 180 with a blood pressure of 197/52. EKGs taken during and after the exercise did not reveal any significant changes from the baseline. Patient did not experience any chest pain. Echo data: Baseline echo images show normal wall motion and thickening. Exercise echo images showed augmentation of wall motion and thickening in all the segments. Final impression: #1. Negative stress test #2. Negative stress echo.
== END | disposition home or self-care (01) ==
LOC: RADNMMAIN 09:44
PROVIDERS: ATTEND Internal Medicine Interventional Cardiology
DX: R07.89 Other chest pain (principal)
CPT/HCPCS: 93351

== ENCOUNTER → 2018-11-28 | Outpatient (CLI) | payer OTHER | END | disposition home or self-care (01) | LOC: LABWHC1 15:47 | PROVIDERS: ATTEND Physician Assistant | DX: Z53.9 Procedure and treatment not carried out, unspecified reason (principal) ==

== ENCOUNTER → 2018-12-06 | Outpatient (CLI) | payer OTHER ==
[2018-12-06 15:31] LABS: Basophils # (A) 0.1 k/uL (0-0.2); Basophils % (A) 1 %; Eosinophils # (A) 0.2 k/uL (0-0.7); Eosinophils % (A) 3 %; HCT 41.6 % (39.0-53.0); Lymphocytes # (A) 2.3 k/uL (1.0-4.8); Lymphocytes % (A) 27 %; MCH 28.6 pg (25.0-35.0); MCHC 33.5 g/dL (31.0-37.0); MCV 85.3 fL (80.0-100.0); Mean Platelet Volume 7.6; Monocytes # (A) 0.7 k/uL (0-1.0); Monocytes % (A) 8 %; Neutrophils # (A) 5.2 k/uL (1.3-7.7); Neutrophils % (A) 60 %; Platelet Count 301 k/uL (150-450); RBC 4.88 m/uL (4.30-5.90); RDW 12.8 % (11.5-15.5); WBC 8.7 k/uL (3.8-10.6)
[2018-12-06 16:13] LABS: Erythrocyte Sedimentation Rate 7 mm/hr (0-15)
[2018-12-07 00:03] LABS: Albumin 4.7 g/dL (3.80-4.90); Albumin/Globulin Ratio 2.35 (1.60-3.17); Anion Gap 7.7 mmol/L (4.00-12.00); BUN/Creat Ratio 14.44 Ratio (12.00-20.00); C Reactive Protein 1.6 mg/dL (0.0-0.8); Calcium 9.8 mg/dL (8.7-10.3); Carbon Dioxide 27.3 mmol/L (21.6-31.8); Potassium 4.5 mmol/L (3.5-5.5); Total Bilirubin 0.4 mg/dL (0.3-1.2); Total Protein 6.7 g/dL (6.2-8.2)
== END | disposition home or self-care (01) ==
LOC: LABWHC1 15:01
PROVIDERS: ATTEND Physician Assistant
DX: K51.90 Ulcerative colitis, unspecified, without complications (principal)
CPT/HCPCS: 36415; 80053; 85025; 85652; 86140

== ENCOUNTER 2019-03-20 12:15 | Inpatient (IN) | payer OTHER ==
[2019-03-20] MEDS ORDERED: SODIUM CHLORIDE 0.9% 1,000 ML IV STA (13:01)
[2019-03-20 13:29] LABS: Basophils # (A) 0.1 k/uL (0-0.2); Basophils % (A) 1 %; Eosinophils # (A) 0.1 k/uL (0-0.7); Eosinophils % (A) 1 %; HCT 42.3 % (39.0-53.0); HGB 13.5 gm/dL (13.0-17.5); Lymphocytes # (A) 1.8 k/uL (1.0-4.8); Lymphocytes % (A) 15 %; MCH 26.8 pg (25.0-35.0); MCHC 31.8 g/dL (31.0-37.0); MCV 84.3 fL (80.0-100.0); Mean Platelet Volume 8.6; Monocytes # (A) 0.8 k/uL (0-1.0); Monocytes % (A) 7 %; Neutrophils # (A) 9.1 k/uL (1.3-7.7); Neutrophils % (A) 75 %; Platelet Count 329 k/uL (150-450); RBC 5.01 m/uL (4.30-5.90); RDW 12.8 % (11.5-15.5); WBC 12.1 k/uL (3.8-10.6)
[2019-03-20 13:32] LABS: ALT 26 U/L (4-49); AST 38 U/L (17-59); African American GFR (CKD) >90 (>60 ml/min/1.73 sqM); Albumin 4.3 g/dL (3.5-5.0); Alkaline Phosphatase 95 U/L (38-126); Amorphous Sediment,Urine Moderate /hpf; Amylase 43 U/L (30-110); Anion Gap 9 mmol/L; Appearance,Urine Turbid (Clear); Bilirubin,Urine Negative (Negative); Blood Urea Nitrogen 13 mg/dL (9-20); Blood,Urine Negative (Negative); Calcium 9.9 mg/dL (8.4-10.2); Carbon Dioxide 27 mmol/L (22-30); Chloride 102 mmol/L (98-107); Color,Urine Yellow; Glucose 101 mg/dL (74-99); Glucose,Urine (UA) Negative (Negative); Ketones,Urine Negative (Negative); Leukocyte Esterase,Urine Negative (Negative); Nitrite,Urine Negative (Negative); Non-African American GFR(CKD) >90 (>60 ml/min/1.73 sqM); PH, Urine 7.5 (5.0-8.0); Potassium 4.4 mmol/L (3.5-5.1); Protein,Urine Trace (Negative); Sodium 138 mmol/L (137-145); Specific Gravity,Urine 1.024 (1.001-1.035); Total Bilirubin 0.7 mg/dL (0.2-1.3); Total Protein 7.3 g/dL (6.3-8.2); WBC,Urine 1 /hpf (0-5)
--- NOTE | 2019-03-20 13:41 | ED ---
Abdominal Pain HPI - General Chief Complaint: Abdominal Pain Stated Complaint: abdominal pain Time Seen by Provider: 03/20/19 12:52 Source: patient, RN notes reviewed Mode of arrival: ambulatory Limitations: no limitations - History of Present Illness Initial Comments: 23-year-old male presents emergency Department chief complaint of severe periumbilical abdominal pain. Patient states that he had a bowel movement states that he had increasing unalleviated abdominal pain states is improving at this time. Patient does admit that he has ulcerative colitis which was diagnosed within the last year. He has persistent bloody stools daily they have recently placed him on prednisone which is not helping. Patient denies any fevers or chills. He states that in feels very tight, distended primarily on the mid left side. Patient has no dysuria no hematuria. Denies any flank pain no known fever. - Related Data Home Medications Medication Instructions Recorded Confirmed sulfaSALAzine [Azulfidine] 1,000 mg PO QID 09/07/18 09/07/18 Allergies Allergy/AdvReac Type Severity Reaction Status Date / Time No Known Allergies Allergy Verified 03/20/19 12:34 Review of Systems ROS Statement: Those systems with pertinent positive or pertinent negative responses have been documented in the HPI. ROS Other: All systems not noted in ROS Statement are negative. Past Medical History Past Medical History: Chest Pain / Angina, GI Bleed Additional Past Medical History / Comment(s): OCC CP, CARDIAC TESTING NL - TOLD POSS GERD, RX DIDN'T HELP. BLOOD IN STOOL FOR PAST WEEK. History of Any Multi-Drug Resistant Organisms: None Reported Additional Past Surgical History / Comment(s): WISDOM TEETH. Past Anesthesia/Blood Transfusion Reactions: No Reported Reaction Past Psychological History: No Psychological Hx Reported Smoking Status: Never smoker Past Alcohol Use History: Occasional Past Drug Use History: None Reported - Past Family History Mother Family Medical History: No Reported History General Exam Limitations: no limitations General appearance: alert, in no apparent distress Head exam: Present: atraumatic, normocephalic, normal inspection Eye exam: Present: normal appearance, PERRL, EOMI. Absent: scleral icterus, conjunctival injection, periorbital swelling ENT exam: Present: normal exam, normal oropharynx, mucous membranes moist Neck exam: Present: normal inspection, full ROM. Absent: tenderness, meningismus, lymphadenopathy Respiratory exam: Present: normal lung sounds bilaterally. Absent: respiratory distress, wheezes, rales, rhonchi, stridor Cardiovascular Exam: Present: regular rate, normal rhythm, normal heart sounds. Absent: systolic murmur, diastolic murmur, rubs, gallop, clicks GI/Abdominal exam: Present: soft, distended, tenderness (Moderate periumbilical left-sided), rigid (Left-sided), normal bowel sounds. Absent: guarding, rebound Back exam: Absent: CVA tenderness (R), CVA tenderness (L) Neurological exam: Present: alert, oriented X3 Skin exam: Present: warm, dry, intact, normal color. Absent: rash Course Vital Signs 03/20/19 12:32 Temperature 98.9 F Pulse Rate 99 Respiratory 20 Rate Blood Pressure 160/85 O2 Sat by Pulse 99 Oximetry Medical Decision Making - Medical Decision Making Labs are essentially unremarkable. CT shows large mass of his mid to lower descending colon extending into the proximal sigmoid colon this is characterized by severe abnormal masslike soft tissue thickening measuring up to 27 cm in 9.5 centimeters wide neoplasm particular lymphoma should be considered - Lab Data Result diagrams: 03/20/19 13:08 03/20/19 13:08 Lab Results 03/20/19 03/20/19 03/20/19 Range/Units 13:08 13:08 13:08 WBC 12.1 H (3.8-10.6) k/uL RBC 5.01 (4.30-5.90) m/uL Hgb 13.5 (13.0-17.5) gm/dL Hct 42.3 (39.0-53.0) % MCV 84.3 (80.0-100.0) fL MCH 26.8 (25.0-35.0) pg MCHC 31.8 (31.0-37.0) g/dL RDW 12.8 (11.5-15.5) % Plt Count 329 (150-450) k/uL Neutrophils % 75 % Lymphocytes % 15 % Monocytes % 7 % Eosinophils % 1 % Basophils % 1 % Neutrophils # 9.1 H (1.3-7.7) k/uL Lymphocytes # 1.8 (1.0-4.8) k/uL Monocytes # 0.8 (0-1.0) k/uL Eosinophils # 0.1 (0-0.7) k/uL Basophils # 0.1 (0-0.2) k/uL Sodium 138 (137-145) mmol/L Potassium 4.4 (3.5-5.1) mmol/L Chloride 102 (98-107) mmol/L Carbon Dioxide 27 (22-30) mmol/L Anion Gap 9 mmol/L BUN 13 (9-20) mg/dL Creatinine 0.77 (0.66-1.25) mg/dL Est GFR (CKD-EPI)AfAm >90 (>60 ml/min/1.73 sqM) Est GFR (CKD-EPI)NonAf >90 (>60 ml/min/1.73 sqM) Glucose 101 H (74-99) mg/dL Plasma Lactic Acid Ford (0.7-2.0) mmol/L Calcium 9.9 (8.4-10.2) mg/dL Total Bilirubin 0.7 (0.2-1.3) mg/dL AST 38 (17-59) U/L ALT 26 (4-49) U/L Alkaline Phosphatase 95 (38-126) U/L Total Protein 7.3 (6.3-8.2) g/dL Albumin 4.3 (3.5-5.0) g/dL Amylase 43 (30-110) U/L Lipase 18 L (23-300) U/L Urine Color Yellow Urine Appearance Turbid (Clear) Urine pH 7.5 (5.0-8.0) Ur Specific Arthur 1.024 (1.001-1.035) Urine Protein Trace H (Negative) Urine Glucose (UA) Negative (Negative) Urine Ketones Negative (Negative) Urine Blood Negative (Negative) Urine Nitrite Negative (Negative) Urine Bilirubin Negative (Negative) Urine Urobilinogen 3.0 (<2.0) mg/dL Ur Leukocyte Esterase Negative (Negative) Urine WBC 1 (0-5) /hpf Amorphous Sediment Moderate H (None) /hpf 03/20/19 Range/Units 13:08 WBC (3.8-10.6) k/uL RBC (4.30-5.90) m/uL Hgb (13.0-17.5) gm/dL Hct (39.0-53.0) % MCV (80.0-100.0) fL MCH (25.0-35.0) pg MCHC (31.0-37.0) g/dL RDW (11.5-15.5) % Plt Count (150-450) k/uL Neutrophils % % Lymphocytes % % Monocytes % % Eosinophils % % Basophils % % Neutrophils # (1.3-7.7) k/uL Lymphocytes # (1.0-4.8) k/uL Monocytes # (0-1.0) k/uL Eosinophils # (0-0.7) k/uL Basophils # (0-0.2) k/uL Sodium (137-145) mmol/L Potassium (3.5-5.1) mmol/L Chloride (98-107) mmol/L Carbon Dioxide (22-30) mmol/L Anion Gap mmol/L BUN (9-20) mg/dL Creatinine (0.66-1.25) mg/dL Est GFR (CKD-EPI)AfAm (>60 ml/min/1.73 sqM) Est GFR (CKD-EPI)NonAf (>60 ml/min/1.73 sqM) Glucose (74-99) mg/dL Plasma Lactic Acid Ford 1.2 (0.7-2.0) mmol/L Calcium (8.4-10.2) mg/dL Total Bilirubin (0.2-1.3) mg/dL AST (17-59) U/L ALT (4-49) U/L Alkaline Phosphatase (38-126) U/L Total Protein (6.3-8.2) g/dL Albumin (3.5-5.0) g/dL Amylase (30-110) U/L Lipase (23-300) U/L Urine Color Urine Appearance (Clear) Urine pH (5.0-8.0) Ur Specific Arthur (1.001-1.035) Urine Protein (Negative) Urine Glucose (UA) (Negative) Urine Ketones (Negative) Urine Blood (Negative) Urine Nitrite (Negative) Urine Bilirubin (Negative) Urine Urobilinogen (<2.0) mg/dL Ur Leukocyte Esterase (Negative) Urine WBC (0-5) /hpf Amorphous Sediment (None) /hpf Disposition Clinical Impression: Colonic mass, Rectal bleeding Disposition: ADMITTED IP TO THIS [facility] Condition: Fair Referrals: Bria Case MD [Primary Care Provider] - 1-2 days
--- NOTE | 2019-03-20 14:35 | XR ---
EXAMINATION TYPE: XR KUB DATE OF EXAM: 03/20/2019 COMPARISON: None HISTORY: Abdomen pain TECHNIQUE: Abdomen is examined in the upright view. FINDINGS: Colonic bowel gas is present. Psoas margins are normal. No suspicious air-fluid levels or d ifferential air-fluid levels are present. No free air is under the diaphragms. No mass effect is evid ent. Organomegaly is not evident. No suspicious calcifications. IMPRESSION: 1. Nonspecific abdomen
--- NOTE | 2019-03-20 15:11 | CT ---
EXAMINATION TYPE: CT abdomen pelvis w con DATE OF EXAM: 03/20/2019 COMPARISON: NONE HISTORY: 23-year-old male with abdominal pain TECHNIQUE: Contiguous axial scanning of the abdomen and pelvis following administration of 100 ml Iso froilan 300 IV contrast. Delayed images through the kidneys and coronal/sagittal reconstructions perform ed. CT DLP: 1028.6 mGycm Automated exposure control for dose reduction was used. FINDINGS: Heart normal size without pericardial effusion. Lung bases clear without pleural effusion. Some focal hypodensity along the falciform ligament could represent focal fat. It seems to have been present back on 09/07/2018. Portal venous system is patent. No biliary ductal dilatation. Gallbladder, adrenal glands, left kidney, spleen, and pancreas appear within normal limits. 8mm hypodensity central upper pole right kidney too small fractured CT characterization, likely cyst. No dilated small bowel, free fluid, or free air. A couple borderline sized mesenteric lymph nodes left side of the abdomen measure up to 7 mm, refer t o axial image 37. There is gross abnormality of the mid to lower descending colon extending into the proximal sigmoid c olon. Some adjacent inflammatory edema is present. This thickening is masslike with the abnormality m easuring up to 27.2 cm craniocaudal and 9.5 cm wide (refer to coronal image 39 for a wine sales representative i mage). Bladder partially distended. No abnormal fluid collection in the pelvis or pelvic lymphadenopathy. Bones: No osseous destructive process. IMPRESSION: 1. GROSS ABNORMALITY OF THE MID TO LOWER DESCENDING COLON EXTENDING INTO THE PROXIMAL SIGMOID COLON. THIS IS CHARACTERIZED BY SEVERE ABNORMAL MASSLIKE SOFT TISSUE THICKENING WITH THE ABNORMALITY MEASURI NG UP TO 27.2 CM CRANIAL CAUDAL AND 9.5 CM WIDE. NEOPLASM, PARTICULARLY LYMPHOMA SHOULD BE CONSIDERED . 2. SOME MILD REACTIVE PERICOLONIC EDEMA ALONG THIS LEVEL. NO FREE AIR OR ABSCESS.
[2019-03-20] MEDS ORDERED: ONDANSETRON 4 MG/2 ML VIAL IVP PRN (15:58)
[2019-03-20] MEDS ORDERED: ACETAMINOPHEN TAB 325 MG TAB PO STA (17:06)
[2019-03-20] MEDS ORDERED: BUTALB/APAP/CAFF 50-325-40MG TAB PO PRN (17:23)
[2019-03-20] MEDS ORDERED: KETOROLAC 30 MG/ML 1 ML VIAL IVP PRN (17:27)
--- NOTE | 2019-03-20 17:30 | P.HPIM ---
History of Present Illness 23-year-old pleasant male came in with the severe abdominal pain started today. Patient normally does have multiple bowel movements a day and his bowel movement pattern didn't change patient is fully came in with a severe abdominal pain. Patient does have history of ulcerative colitis which was diagnosed 6 months ago with the clinic biopsy. Patient is on balsalazide patient was having these symptoms for last couple weeks of increased diarrhea because of which patient was started on oral prednisone which she says is not helping patient denied any fever chills patient doesn't have any leukocytosis. CAT scan of the abdomen was obtained which showed significant thickening of the mid descending to sigmoid colon with a very little room in this is a masslike lesion with circumferential thickening. I had a lengthy discussion spent significant amount of time discussing with corporate strategist and radiologist. Malignancy is uncommon at this age but patient probably will need a biopsy plan is to start him on systemic steroids. Possibility of this amount of thickening with ulcerative colitis is low as per gastroenterology, because of which we're obtaining surgical consultation as well. Oncology was consulted by ER physician with concerns of lymphoma which is not uncommon at this age medically Hodgkin's lymphoma and patient is quite a bit anxious regarding this masslike lesion Review of Systems REVIEW OF SYSTEMS: CONSTITUTIONAL: No fever, no malaise, no fatigue. HEENT: No recent visual problems or hearing problems. Denied any sore throat. CARDIOVASCULAR: No chest pain, orthopnea, PND, no palpitations, no syncope. PULMONARY: No shortness of breath, no cough, no hemoptysis. GASTROINTESTINAL: Mentioned in HPI NEUROLOGICAL: No headaches, no weakness, no numbness. HEMATOLOGICAL: Denies any bleeding or petechiae. GENITOURINARY: Denies any burning micturition, frequency, or urgency. MUSCULOSKELETAL/RHEUMATOLOGICAL: Denies any joint pain, swelling, or any muscle pain. ENDOCRINE: Denies any polyuria or polydipsia. The rest of the 14-point review of systems is negative. Past Medical History Past Medical History: Chest Pain / Angina, GI Bleed Additional Past Medical History / Comment(s): OCC CP, CARDIAC TESTING NL - TOLD POSS GERD, RX DIDN'T HELP. BLOOD IN STOOL FOR PAST WEEK. History of Any Multi-Drug Resistant Organisms: None Reported Additional Past Surgical History / Comment(s): WISDOM TEETH. Past Anesthesia/Blood Transfusion Reactions: No Reported Reaction Past Psychological History: No Psychological Hx Reported Smoking Status: Never smoker Past Alcohol Use History: Occasional Past Drug Use History: None Reported - Past Family History Mother Family Medical History: No Reported History Medications and Allergies Home Medications Medication Instructions Recorded Confirmed Type Balsalazide Disodium [Colazal] 2,250 mg PO AC-TID 03/20/19 03/20/19 History predniSONE 30 mg PO DAILY 03/20/19 03/20/19 History Allergies Allergy/AdvReac Type Severity Reaction Status Date / Time No Known Allergies Allergy Verified 03/20/19 16:12 Physical Exam Vitals: Vital Signs Temp Pulse Resp BP Pulse Ox 03/20/19 12:32 98.9 F 99 20 160/85 99 Intake and Output 03/20/19 03/20/19 03/20/19 06:59 14:59 22:59 Other: Weight 84.912 kg PHYSICAL EXAMINATION: GENERAL: The patient is alert and oriented x3, not in any acute distress. Well developed, well nourished. HEENT: Pupils are round and equally reacting to light. EOMI. No scleral icterus. No conjunctival pallor. Normocephalic, atraumatic. No pharyngeal erythema. No thyromegaly. CARDIOVASCULAR: S1 and S2 present. No murmurs, rubs, or gallops. PULMONARY: Chest is clear to auscultation, no wheezing or crackles. ABDOMEN: Soft, nontender, nondistended, normoactive bowel sounds. No palpable organomegaly. MUSCULOSKELETAL: No joint swelling or deformity. EXTREMITIES: No cyanosis, clubbing, or pedal edema. NEUROLOGICAL: Gross neurological examination did not reveal any focal deficits. SKIN: No rashes. Results CBC & Chem 7: 03/20/19 13:08 03/20/19 13:08 Labs: Abnormal Lab Results - Last 24 Hours (Table) 03/20/19 03/20/19 03/20/19 Range/Units 13:08 13:08 13:08 WBC 12.1 H (3.8-10.6) k/uL Neutrophils # 9.1 H (1.3-7.7) k/uL Glucose 101 H (74-99) mg/dL Lipase 18 L (23-300) U/L Urine Protein Trace H (Negative) Amorphous Sediment Moderate H (None) /hpf Assessment and Plan Plan: abdominal pain: Probably flareup of ulcerative colitis and because started on systemic steroids will obtain CRP ESR. Gastroenterology was consulted -Masslike lesion in the abdomen which appears to be within the colon intramural etiology is not clear at all the lymphoma cannot be ruled out will obtain general surgery and oncology consultation patient may need biopsy of this lesion. -Leukocytosis can be secondary to ulcerative colitis
[2019-03-20] MEDS: methylPREDNISolone SOD SUCCI 40 MG/ML 1 ML VIAL IV SCH (19:56)
[2019-03-20] MEDS: SODIUM CHLORIDE 0.9% 1,000 ML IV SCH (21:18)
[2019-03-20] MEDS: FAMOTIDINE 20 MG TAB PO SCH (22:36)
[2019-03-21] MEDS: methylPREDNISolone SOD SUCCI 40 MG/ML 1 ML VIAL IV SCH ×3 (01:33→16:01)
[2019-03-21] MEDS: SODIUM CHLORIDE 0.9% 1,000 ML IV SCH ×3 (07:33→20:37)
--- NOTE | 2019-03-21 07:41 | CONS ---
CONSULTATION DATE OF SERVICE: 03/20/2019 REASON FOR CONSULTATION: Abdominal pain, history of ulcerative colitis. HISTORY OF PRESENT ILLNESS: The patient is a 23-year-old pleasant white male who came to the emergency room with severe left-sided abdominal pain that started early this morning. The patient has been having lower abdominal pain and left-sided abdominal pain with bloody diarrhea since August of this year. He was seen by Dr. Mendez and underwent a colonoscopy in August of 2018 that showed evidence of left-sided colitis. Biopsies were consistent with ulcerative colitis. The patient subsequently was started on Azulfidine with no help and he saw a PA in the office, Emily Andrade and medications were changed to balsalazide 3 tablets 3 times daily. About 3 weeks ago because of persistent symptoms and bloody diarrhea, he was started on prednisone 40 mg daily. He felt better for a few days, but then continued to have worsening diarrhea with bowel movements anywhere from 5 to 6 a day, which are loose to watery in consistency and blood and mucus in the stool. He did have a CT of the abdomen and pelvis done in the emergency room today that showed significant thickening of the sigmoid colon and descending colon with a masslike lesion measuring 24 cm x 10 cm and possibility of neoplasm was being suggested by the radiologist. In the meantime, the patient continues to have over 5 to 6 bowel movements daily, some blood and mucus in the stool. He denies any weight loss. No fever, chills, night sweats. PAST MEDICAL HISTORY: Ulcerative colitis diagnosed in August of this year. MEDICATIONS AT HOME: Prednisone 40 mg daily, balsalazide 3 tablets 3 times daily. ALLERGIES: None. SOCIAL HISTORY: No smoking. No alcohol use. FAMILY HISTORY: Unremarkable. Mother and dad are healthy. REVIEW OF SYSTEMS: CARDIOPULMONARY: No chest pain or shortness of breath. GENITOURINARY: No dysuria or hematuria. MUSCULOSKELETAL: Unremarkable. SKIN: Unremarkable. ENDOCRINE: Unremarkable. PSYCHIATRIC: Unremarkable. NEUROLOGY: Unremarkable. ENT/VISION: Unremarkable. CONSTITUTIONAL: No recent weight loss. No fever, chills, night sweats. PHYSICAL EXAMINATION: On physical examination, he appears comfortable. No apparent distress. VITAL SIGNS: Are stable. Blood pressure is 132/86, pulse rate 99, temperature 98.9. HEENT EXAMINATION: Unremarkable. Conjunctivae pink. Sclerae anicteric. Oral cavity no lesions. NECK: No JVD or lymph node enlargement. CHEST: Clear to auscultation. HEART: Regular rate and rhythm. ABDOMEN: Soft. Bowel sounds are positive. There was fullness noted in the left lower quadrant area into the left upper quadrant area which was tender. Rest of the abdomen was benign. Bowel sounds are positive. No organomegaly. EXTREMITIES: No pedal edema. SKIN: No rashes. NEURO: Alert and oriented x3. No focal deficits. LABS: Labs done at the time of admission to the hospital: WBC 12.1, hemoglobin 13.5, platelets normal. Basic metabolic panel is within normal limits. Sed rate is 21. BUN and creatinine normal. C-reactive protein is 61. Amylase, lipase normal. ALT, AST, T- bilirubin and alkaline phosphatase are normal. IMPRESSION: This is a patient who presents to the hospital with left-sided abdominal pain that has been going on for the last 6 months duration, but much worse this morning. He was diagnosed with ulcerative colitis by Dr. Mendez and a colonoscopy in August of 2018 showed left-sided colitis. Biopsies of which confirmed ulcerative colitis. The patient since then has been on oral mesalamine and because of persistent left lower quadrant abdominal pain and bloody diarrhea, he was started on prednisone 40 mg daily on outpatient basis with some relief in his symptoms. However, for the last few days, abdominal pain has been progressively getting worse, which has intensified today. Came to the emergency room and a CAT scan showed significantly thickened sigmoid and descending colon with almost a masslike appearance and possibility of neoplasm could not be excluded by the radiologist. It is unclear at this time if we are dealing with exacerbation of ulcerative colitis versus neoplasm. RECOMMENDATIONS: 1. Obtain surgical consultation. 2. We will start him on IV steroids with Solu-Medrol 20 mg q.8 hours. 3. Follow C-reactive protein closely. 4. Obtain stool studies to rule out C difficile colitis. 5. We will review the CAT scan with the radiologist tomorrow. The plan was discussed with the patient as well as his family who is at the bedside. We will follow him closely during his hospital stay. Thank you for this consultation. [place] / [place]: [id number] /
[2019-03-21] MEDS: FAMOTIDINE 20 MG TAB PO SCH ×2 (08:00→20:35)
[2019-03-21 09:02] LABS: HCT 42.2 % (39.0-53.0); HGB 13.2 gm/dL (13.0-17.5); Hypochromasia Slight; MCH 26.8 pg (25.0-35.0); MCHC 31.2 g/dL (31.0-37.0); MCV 85.9 fL (80.0-100.0); Mean Platelet Volume 9.2; Platelet Count 326 k/uL (150-450); RBC 4.91 m/uL (4.30-5.90); RDW 12.8 % (11.5-15.5); WBC 11.9 k/uL (3.8-10.6)
[2019-03-21] MEDS ORDERED: RX INFO: IV CONTRAST WAS GIVEN 1 EACH MISC MISCELLANE PRN (09:32)
[2019-03-21 10:12] LABS: African American GFR (CKD) >90 (>60 ml/min/1.73 sqM); Anion Gap 12 mmol/L; Blood Urea Nitrogen 9 mg/dL (9-20); Calcium 9.6 mg/dL (8.4-10.2); Carbon Dioxide 27 mmol/L (22-30); Chloride 101 mmol/L (98-107); Glucose 100 mg/dL (74-99); Non-African American GFR(CKD) >90 (>60 ml/min/1.73 sqM); Potassium 4.7 mmol/L (3.5-5.1); Sodium 140 mmol/L (137-145)
--- NOTE | 2019-03-21 14:22 | P.GSCN ---
<Teagan Crowley - Last Filed: 03/21/19 14:17> History of Present Illness Consult date: 03/21/19 Reason for Consult: colonic mass, rectal bleeding Requesting physician: Alan Davey History of present illness: CHIEF COMPLAINT: colonic mass HISTORY OF PRESENT ILLNESS: 23-year-old male who presented to emergency room with a chief complaint of abdominal pain. Patient reports history of ulcerative colitis. He follows with Emily Andrade, nurse practitioner at the local [facility]. He underwent a colonoscopy in August [address] Mendez. He reports abdominal pain, diarrhea, and blood and mucus in his stools over the past few months. He has been prescribed various medications by the VEGETABLE TESTER at the GI office with little relief. Patient underwent CT scan in the ER with a masslike lesion, thus general surgery was consulted for further evaluation. Patient examined at the bedside. He reports feeling well at the time of examination. Denies abdominal pain. Tolerating diet. Denies nausea or vomiting. Reports one episode of loose stool today with a small amount of blood present. PAST MEDICAL HISTORY: See list. PAST SURGICAL HISTORY: See list. SOCIAL HISTORY: No illicit drug use. REVIEW OF SYSTEMS: CONSTITUTIONAL: Denies fever or chills. HEENT: Denies blurred vision, vision changes, or eye pain. Denies hemoptysis CARDIOVASCULAR: Denies chest pain or pressure. RESPIRATORY: No shortness of breath. GASTROINTESTINAL: Refer to HPI for pertinent findings HEMATOLOGIC: Denies bleeding disorders. GENITOURINARY: Denies any blood in urine. SKIN: Denies pruitis. Denies rash. PHYSICAL EXAM: VITAL SIGNS: Reviewed. GENERAL: Well-developed in no acute distress. HEENT: No sclera icterus. Extraocular movements grossly intact. Moist buccal mucosa. Head is atraumatic, normocephalic. ABDOMEN: Soft. Nondistended. Nontender. NEUROLOGIC: Alert and oriented. Cranial nerves II through XII grossly intact. LABORATORY DATA: WBC 11.9. Hemoglobin 13.2. Platelet count 326. Potassium 4.7. BUN 9. Creatinine 0.66. Lactic acid 1.2. IMAGING: CT abdomen and pelvis: Gross abnormality of the mid to lower descending colon extending into the proximal sigmoid colon. This is characterized by severe a bnormal masslike soft tissue thickening with abnormality measuring up to 27.2 cm craniocaudal and 9.5 cm wide. Neoplasm, particularly lymphoma should be considered. Some mild reactive pericolonic edema along this level. No free air or abscess. ASSESSMENT: 1. Abdominal pain, rectal bleeding 2. History of ulcerative colitis 3. Abnormal CT scan revealing significantly thickened sigmoid and descending colon with a masslike appearance, neoplasm cannot be excluded. PLAN: GI following. IV steroids per GI Diet as tolerated Oncology following. CT chest ordered. Await results. Dr. Smalls to evaluate patient this afternoon and will make further recomme ndations Nurse practitioner note has been reviewed by physician. Signing provider agrees with the documented findings, assessment, and plan of care. Past Medical History Past Medical History: Chest Pain / Angina, GI Bleed Additional Past Medical History / Comment(s): OCC CP, CARDIAC TESTING NL - TOLD POSS GERD, RX DIDN'T HELP. BLOOD IN STOOL FOR PAST WEEK. History of Any Multi-Drug Resistant Organisms: None Reported Additional Past Surgical History / Comment(s): WISDOM TEETH, colonoscopy Past Anesthesia/Blood Transfusion Reactions: No Reported Reaction Past Psychological History: No Psychological Hx Reported Smoking Status: Never smoker Past Alcohol Use History: Occasional Past Drug Use History: None Reported - Past Family History Mother Family Medical History: No Reported History Medications and Allergies Home Medications Medication Instructions Recorded Confirmed Type Balsalazide Disodium [Colazal] 2,250 mg PO AC-TID 03/20/19 03/20/19 History predniSONE 30 mg PO DAILY 03/20/19 03/20/19 History Allergies Allergy/AdvReac Type Severity Reaction Status Date / Time No Known Allergies Allergy Verified 03/20/19 16:12 Surgical - Exam Vital Signs Temp Pulse Resp BP Pulse Ox 98.9 F 99 20 160/85 99 03/20/19 12:32 03/20/19 12:32 03/20/19 12:32 03/20/19 12:32 03/20/19 12:32 Results - Labs 03/21/19 07:55 03/21/19 07:55 Abnormal Lab Results - Last 24 Hours (Table) 03/20/19 03/20/19 03/21/19 Range/Units 13:08 13:08 07:55 WBC 11.9 H (3.8-10.6) k/uL ESR 21 H (0-15) mm/hr Glucose (74-99) mg/dL C-Reactive Protein 61.0 H (<10.0) mg/L 03/21/19 Range/Units 07:55 WBC (3.8-10.6) k/uL ESR (0-15) mm/hr Glucose 100 H (74-99) mg/dL C-Reactive Protein (<10.0) mg/L Diabetes panel 03/21/19 Range/Units 07:55 Sodium 140 (137-145) mmol/L Potassium 4.7 (3.5-5.1) mmol/L Chloride 101 (98-107) mmol/L Carbon Dioxide 27 (22-30) mmol/L BUN 9 (9-20) mg/dL Creatinine 0.66 (0.66-1.25) mg/dL Glucose 100 H (74-99) mg/dL Calcium 9.6 (8.4-10.2) mg/dL Calcium panel 03/21/19 Range/Units 07:55 Calcium 9.6 (8.4-10.2) mg/dL Pituitary panel 03/21/19 Range/Units 07:55 Sodium 140 (137-145) mmol/L Potassium 4.7 (3.5-5.1) mmol/L Chloride 101 (98-107) mmol/L Carbon Dioxide 27 (22-30) mmol/L BUN 9 (9-20) mg/dL Creatinine 0.66 (0.66-1.25) mg/dL Glucose 100 H (74-99) mg/dL Calcium 9.6 (8.4-10.2) mg/dL Adrenal panel 03/21/19 Range/Units 07:55 Sodium 140 (137-145) mmol/L Potassium 4.7 (3.5-5.1) mmol/L Chloride 101 (98-107) mmol/L Carbon Dioxide 27 (22-30) mmol/L BUN 9 (9-20) mg/dL Creatinine 0.66 (0.66-1.25) mg/dL Glucose 100 H (74-99) mg/dL Calcium 9.6 (8.4-10.2) mg/dL <Wally Smalls - Last Filed: 03/21/19 16:29> History of Present Illness History of present illness: as above. Patient with recent diagnosis of ulcerative colitis. Failed o utpatient therapy with increasing pain and cramping. Some frequent rectal bleeding since diagnosis. On exam patient with tenderness and swelling the left midabdomen. CAT scan reviewed with the patient and his family at the bedside. The significant colonic thickening was pointed out to them. Underlying neoplasm is a consideration although thought to be less likely. Agree that surgical resection is in the patient's best interest and that resolution with steroid therapy and immune therapy alone is fairly unlikely. Decisions regarding re- anastomosis and definitive treatment of his underlying inflammatory bowel disease more complicated. Agree with plans for tertiary care evaluation to help us in that. Discussed with the family and also Dr. Stark and currently plans are for either discharge and oral steroids versus inpatient transfer. We will reevaluate the patient tomorrow to confirm clinical improvement. Thankfully the patient thus far states his pain has improved since admission. Surgical - Exam Vital Signs Temp Pulse Resp BP Pulse Ox 98.9 F 99 20 160/85 99 03/20/19 12:32 03/20/19 12:32 03/20/19 12:32 03/20/19 12:32 03/20/19 12:32 Results - Labs 03/21/19 07:55 03/21/19 07:55 Abnormal Lab Results - Last 24 Hours (Table) 03/20/19 03/20/19 03/21/19 Range/Units 13:08 13:08 07:55 WBC 11.9 H (3.8-10.6) k/uL ESR 21 H (0-15) mm/hr Glucose (74-99) mg/dL C-Reactive Protein 61.0 H (<10.0) mg/L 03/21/19 Range/Units 07:55 WBC (3.8-10.6) k/uL ESR (0-15) mm/hr Glucose 100 H (74-99) mg/dL C-Reactive Protein (<10.0) mg/L Diabetes panel 03/21/19 Range/Units 07:55 Sodium 140 (137-145) mmol/L Potassium 4.7 (3.5-5.1) mmol/L Chloride 101 (98-107) mmol/L Carbon Dioxide 27 (22-30) mmol/L BUN 9 (9-20) mg/dL Creatinine 0.66 (0.66-1.25) mg/dL Glucose 100 H (74-99) mg/dL Calcium 9.6 (8.4-10.2) mg/dL Calcium panel 03/21/19 Range/Units 07:55 Calcium 9.6 (8.4-10.2) mg/dL Pituitary panel 03/21/19 Range/Units 07:55 Sodium 140 (137-145) mmol/L Potassium 4.7 (3.5-5.1) mmol/L Chloride 101 (98-107) mmol/L Carbon Dioxide 27 (22-30) mmol/L BUN 9 (9-20) mg/dL Creatinine 0.66 (0.66-1.25) mg/dL Glucose 100 H (74-99) mg/dL Calcium 9.6 (8.4-10.2) mg/dL Adrenal panel 03/21/19 Range/Units 07:55 Sodium 140 (137-145) mmol/L Potassium 4.7 (3.5-5.1) mmol/L Chloride 101 (98-107) mmol/L Carbon Dioxide 27 (22-30) mmol/L BUN 9 (9-20) mg/dL Creatinine 0.66 (0.66-1.25) mg/dL Glucose 100 H (74-99) mg/dL Calcium 9.6 (8.4-10.2) mg/dL
--- NOTE | 2019-03-21 14:59 | CT ---
EXAMINATION TYPE: CT chest w con DATE OF EXAM: 03/21/2019 COMPARISON: CT abdomen 03/20/2019, CT chest 09/07/2018 HISTORY: Abdominal mass. CT DLP: 503 mGycm Automated exposure control for dose reduction was used. CONTRAST: CT scan of the chest is performed with IV Contrast, patient injected with 100ml mL of Isovue 300. FINDINGS: LUNGS: The lungs are grossly clear, there is no concerning parenchymal mass or nodule identified. T here is no pleural effusion or pneumothorax seen. The tracheobronchial tree is patent. 2 mm subpleur al nodule right middle lobe axial image 33. MEDIASTINUM: There are no greater than 1 cm hilar or mediastinal lymph nodes. Trace of pericardial fl uid noted.. OTHER: No additional significant abnormality is seen. Low-attenuation in the left lobe of the liver is too may be related to partial volume averaging is stable from recent CT. IMPRESSION: 1. No diagnostic evidence of metastases. 2 mm subpleural nodule right middle lobe likely is benign bu t is too small to characterize could be followed on six-month basis. 2. There is a stable area of low attenuation in the left lobe of the liver which is indeterminate. Th e previous report suggest this may represent area of focal fatty infiltration, however, this does not measure fat attenuation and appears more pronounced than on the CT scan of 09/07/2018. Therefore, rec ommend follow-up ultrasound for further evaluation.
--- NOTE | 2019-03-21 15:18 | P.PN ---
Subjective 23-year-old pleasant male came in with the severe abdominal pain started today. Patient normally does have multiple bowel movements a day and his bowel movement pattern didn't change patient is fully came in with a severe abdominal pain. Patient does have history of ulcerative colitis which was diagnosed 6 months ago with the clinic biopsy. Patient is on balsalazide patient was having these symptoms for last couple weeks of increased diarrhea because of which patient was started on oral prednisone which she says is not helping patient denied any fever chills patient doesn't have any leukocytosis. CAT scan of the abdomen was obtained which showed significant thickening of the mid descending to sigmoid colon with a very little room in this is a masslike lesion with circumferential thickening. I had a lengthy discussion spent significant amount of time discussing with senior trainer and radiologist. Malignancy is uncommon at this age but patient probably will need a biopsy plan is to start him on systemic steroids. Possibility of this amount of thickening with ulcerative colitis is low as per gastroenterology, because of which we're obtaining surgical consultation as well. Oncology was consulted by ER physician with con cerns of lymphoma which is not uncommon at this age medically Hodgkin's lymphoma and patient is quite a bit anxious regarding this masslike lesion 03/21/2019 Patient was a valid by multiple consultants including oncology the obtained a CAT scan of the chest rule out any lymph node enlargements. There is some nonspecific findings on the CAT scan of the chest beyond which is normal. Patient probably will need a sigmoidoscopy and a biopsy patient was evaluated by general surgery as well. She doesn't have any abdominal pain any more. Patient's CRP and ESR are elevated. Constitutional: Denied any fatigue denied any fever. Cardio vascular: denied any chest pain, palpitations Gastrointestinal denied any nausea vomiting Pulmonary: Denied any shortness of breath cough Neurologic denied any new focal deficits All inpatient medications were reviewed and appropriate changes in these medications as dictated in the interval history and assessment and plan. Objective - Vital Signs Vital signs: Vital Signs Temp 98 F 03/21/19 11:55 Pulse 61 03/21/19 11:55 Resp 20 03/21/19 11:55 BP 122/71 03/21/19 11:55 Pulse Ox 97 03/21/19 11:55 Intake & Output 03/20/19 03/21/19 03/21/19 18:59 06:59 18:59 Intake Total 590 Balance 590 Weight 84.912 kg 84.822 kg Intake: Oral 590 Other: Voiding Method Toilet Toilet # Voids 2 3 - Exam PHYSICAL EXAMINATION: GENERAL: The patient is alert and oriented x3, not in any acute distress. Well developed, well nourished. HEENT: Pupils are round and equally reacting to light. EOMI. No scleral icterus. No conjunctival pallor. Normocephalic, atraumatic. No pharyngeal erythema. No thyromegaly. CARDIOVASCULAR: S1 and S2 present. No murmurs, rubs, or gallops. PULMONARY: Chest is clear to auscultation, no wheezing or crackles. ABDOMEN: Soft, nontender, nondistended, normoactive bowel sounds. No palpable organomegaly. MUSCULOSKELETAL: No joint swelling or deformity. EXTREMITIES: No cyanosis, clubbing, or pedal edema. NEUROLOGICAL: Gross neurological examination did not reveal any focal deficits. SKIN: No rashes. - Labs CBC & Chem 7: 03/21/19 07:55 03/21/19 07:55 Labs: Abnormal Lab Results - Last 24 Hours (Table) 03/20/19 03/20/19 03/21/19 Range/Units 13:08 13:08 07:55 WBC 11.9 H (3.8-10.6) k/uL ESR 21 H (0-15) mm/hr Glucose (74-99) mg/dL C-Reactive Protein 61.0 H (<10.0) mg/L 03/21/19 Range/Units 07:55 WBC (3.8-10.6) k/uL ESR (0-15) mm/hr Glucose 100 H (74-99) mg/dL C-Reactive Protein (<10.0) mg/L Assessment and Plan Plan: abdominal pain: Probably flareup of ulcerative colitis and because started on systemic steroids yes and CRP are elevated Gastroenterology later the patient along with the multiple other consultants for the masslike lesion in intramural thickening of the colon. -Masslike lesion in the abdomen which appears to be within the colon intramural etiology is not clear at all the lymphoma cannot be ruled out will obtain general surgery and oncology evaluated the patient and computed tomography scan of the chest did not show any lymph node enlargements -Leukocytosis can be secondary to ulcerative colitis
--- NOTE | 2019-03-21 23:48 | P.CONS ---
History of Present Illness - Reason for Consult Consult date: 03/21/19 Possible colonic mass - History of Present Illness The patient is a 23-year-old white male, with a diagnosis of ulcerative colitis and 08/29. The patient had presented with a two-month history of diarrhea, abdominal pain with occasional blood and mucous in the stool. He had a colonoscopy with biopsy consistent with diffuse colitis. The patient was diagnosed with ulcerative colitis and started on treatment for the same. Currently his mother, he has continued to have abdominal discomfort, mostly on the left side. Over the past week or so, there appeared to be more blood and mucous in the stool though frequency and consistency of bowel movements are only slightly worse from baseline. He then developed increased left-sided abdominal pain over the past 1 day, associated with occasional nausea. He therefore came into the emergency room. He had a CT of the abdomen and pelvis done which showed significant concentric type thickening of 20+ cm segment of the descending colon/sigmoid, with possible colonic mass in the differential. Consult was therefore placed for further evaluation and recommendations The patient denied any prior personal history of malignancy. He states that his paternal grandfather has a history of lymphoma. Review of Systems Constitutional: Reports anorexia, Reports chronic pain Eyes: denies blurred vision, denies pain Ears: deny: decreased hearing, ear discharge, earache, tinnitus Ears, nose, mouth and throat: Denies headache, Denies sore throat Cardiovascular: Denies chest pain, Denies shortness of breath Respiratory: Denies cough Gastrointestinal: Reports as per HPI, Reports abdominal pain, Reports diarrhea, Reports loss of appetite, Reports nausea Genitourinary: Reports as per HPI Musculoskeletal: Denies myalgias Integumentary: Denies pruritus, Denies rash Neurological: Denies numbness, Denies weakness Psychiatric: Denies anxiety, Denies depression Endocrine: Denies fatigue, Denies weight change Hematologic/Lymphatic: Reports as per HPI Past Medical History Past Medical History: Chest Pain / Angina, GI Bleed Additional Past Medical History / Comment(s): OCC CP, CARDIAC TESTING NL - TOLD POSS GERD, RX DIDN'T HELP. BLOOD IN STOOL FOR PAST WEEK. History of Any Multi-Drug Resistant Organisms: None Reported Additional Past Surgical History / Comment(s): WISDOM TEETH, colonoscopy Past Anesthesia/Blood Transfusion Reactions: No Reported Reaction Past Psychological History: No Psychological Hx Reported Smoking Status: Never smoker Past Alcohol Use History: Occasional Past Drug Use History: None Reported - Past Family History Mother Family Medical History: No Reported History Medications and Allergies Home Medications Medication Instructions Recorded Confirmed Type Balsalazide Disodium [Colazal] 2,250 mg PO AC-TID 03/20/19 03/20/19 History predniSONE 30 mg PO DAILY 03/20/19 03/20/19 History Allergies Allergy/AdvReac Type Severity Reaction Status Date / Time No Known Allergies Allergy Verified 03/20/19 16:12 Physical Exam Vitals: Vital Signs Temp Pulse Resp BP Pulse Ox 03/21/19 11:55 98 F 61 20 122/71 97 03/21/19 05:23 97.5 F L 86 16 127/75 98 03/21/19 01:30 97.7 F 88 18 124/64 97 Intake and Output 03/21/19 03/21/19 03/22/19 14:59 22:59 06:59 Other: Voiding Method Toilet Toilet # Voids 3 - Constitutional Patient appears quite comfortable laying in bed. He does not appear toxic General appearance: no acute distress - EENT Eyes: EOMI, PERRLA ENT: hearing grossly normal, normal oropharynx - Neck Neck: no lymphadenopathy Thyroid: bilateral: normal size - Respiratory Respiratory: bilateral: CTA - Cardiovascular Rhythm: regular - Gastrointestinal Linear area of tenderness and guarding involving the left upper and lower quadrants. Possible linear mass palpable, though difficult to assess definitively due to tenderness and guarding General gastrointestinal: normal bowel sounds, soft, tenderness Localized gastrointestinal: tender: LUQ, LLQ, guarding: LUQ, LLQ - Integumentary Integumentary: normal - Neurologic Neurologic: CNII-XII intact - Musculoskeletal Musculoskeletal: strength equal bilaterally - Psychiatric Psychiatric: A&O x's 3, appropriate affect Results CBC & Chem 7: 03/21/19 07:55 03/21/19 07:55 Labs: Abnormal Lab Results - Last 24 Hours (Table) 03/21/19 03/21/19 Range/Units 07:55 07:55 WBC 11.9 H (3.8-10.6) k/uL Glucose 100 H (74-99) mg/dL Comments: Colonoscopy procedure note and pathology reviewed in EMR Abdominal x-ray: report reviewed CT scan - abdomen: report reviewed CT scan - pelvis: report reviewed Assessment and Plan (1) Colonic mass Narrative/Plan: Consultbecause possibility of a mass on CT scan. He certainly does have a significant area of linear thickening. While malignancy is a possibility, it is clinically less likely. The patient had a colonoscopy about 6-7 months ago. There was no evidence of any malignancy then. For a 20 cm plus colon cancer to develop in that period of time, is highly unlikely. Colon cancer would be very unusual in this patient's age group. An aggressive lymphoma could potentially represent pancreas, though again development of a 20+ centimeter lesion within 6-7 months, with no associated B symptoms although adenopathy will also be highly unusual Therefore an area of marked inflammation with thickening and induration of the bowel wall due to his underlying ulcerative colitis is clinically much more likely. CT of the chest and labs for adenopathy will be ordered for further workup Case will be discussed with gastroenterology and surgery. If based on their evaluation malignancy remained a significant concern, then we will discuss appropriate method to obtain a tissue diagnosis Discussed in detail with the patient and his mother and all the questions answered Current Visit: Yes Status: Acute Code(s): K63.89 - OTHER SPECIFIED DISEASES OF INTESTINE SNOMED Code(s): 365585192 Plan: Add: Case discussed with surgery. They agree that malignant mass is much less likely, with inflammation due to ulcerative colitis much more probable. Ther efore and definitive surgery is being considered at this time. We will follow along
--- NOTE | 2019-03-22 00:01 | PN ---
PROGRESS NOTE DATE OF DICTATION: March 21, 2019 The patient is a 23-year-old pleasant white male who was diagnosed with ulcerative colitis about 6 months ago, was being treated on an outpatient basis with oral mesalamine for almost 3 months with minimal improvement in his symptoms. About 4 weeks ago, he was having worsening left lower quadrant abdominal pain and bloody diarrhea with 5-6 bowel movemetns daily and he was tried on oral prednisone on an outpatient basis at 30 mg daily. The patient was admitted to the hospital. He presented to the emergency room yesterday complaining of severe left lower quadrant abdominal pain. He was having about 5 or 6 bowel movements daily. He had a CT of the abdomen and pelvis done in the emergency room yesterday that showed significant thickening of the proximal sigmoid colon and the entire descending colon up to the splenic flexure with a masslike lesion and on further review of the CT scan, it appeared that there was significant thickening of the colon noted. Surgery was consulted. He was evaluated by Dr. Smalls. In the meantime, he was started on IV Solu-Medrol 20 mg q.8 hours. This morning the diarrhea and the bleeding has significantly improved. He had only 1 bowel movement today. A small amount of blood in the stool. He has continued to have persistent left lower quadrant abdominal pain. REVIEW OF SYSTEMS: He denies any fever, chills, or night sweats. Denies any recent weight loss. PHYSICAL EXAMINATION: He appears comfortable. No apparent distress. VITAL SIGNS: Stable. Blood pressure is 133/71, pulse rate 61, temperature 98. HEENT examination unremarkable. Conjunctivae pink. Sclerae anicteric. Oral cavity no lesions. NECK: No JVD or lymph node enlargement. CHEST: Clear to auscultation. HEART: Regular rate and rhythm. ABDOMEN: Soft. There was fullness like feeling in the left lower quadrant and left upper quadrant area which was tender. Right side of the abdomen was benign. Bowel sounds are positive. No organomegaly. EXTREMITIES: No pedal edema. SKIN no rashes. NEUROLOGIC: Alert and oriented x3. No focal deficits. LABS: From today WBC 11.9, hemoglobin 13.2, platelets are normal. Basic metabolic panel is within normal limits. CRP yesterday was [address] of the chest was also done today that showed a 2 mm subpleural nodule in the right middle lobe seen. Mild focal fatty infiltration of the liver noted. Otherwise it was unremarkable. IMPRESSION: This is a patient with left sided ulcerative colitis, that was diagnosed by Dr. Mendez about six months ago. He was treated with oral mesalamine on an outpatient basis for 3 months with no help. Recently was started on outpatient prednisone at 40 mg daily and his symptoms gradually improved. However, yesterday he presented to the hospital with worsening left lower quadrant abdominal pain and worsening bloody diarrhea with bowel movements 5-[address] of the abdomen showed significant thickening of the sigmoid and descending colon up to the splenic flexure and possibility of masslike lesion could not be excluded. On review of the CT scan, with the radiologist, it appears that we are dealing with severe inflammatory bowel disease involving the descending and sigmoid colon with significant neuro thickening and dark neoplasm at the present time. Surgery has been consulted. Discussed with Dr. Smalls. RECOMMENDATIONS: I had a lengthy discussion with the patient as well as the family who was at the bedside. At this time, we will continue with IV Solu-Medrol 40 mg q.8 hours. We will repeat CRP tomorrow and await the sed rate. We will advance to full liquid diet today. Given the atypical presentation and findings on the recent CT scan of the abdomen and pelvis and the persistent symptoms for the last three months, I recommended transfer to a tertiary center to be evaluated by inflammatory bowel disease team as well as a colorectal surgeon. The patient and family wants to think about this and let me know tomorrow. In the meantime, we will continue with the current management. Thank you for this consultation. We will follow with you closely during his hospital stay. MMODL / IJN: [id number] /
[2019-03-22] MEDS: methylPREDNISolone SOD SUCCI 40 MG/ML 1 ML VIAL IV SCH ×3 (00:09→16:55)
[2019-03-22 07:44] LABS: Basophils # (A) 0.1 k/uL (0-0.2); Basophils % (A) 0 %; Eosinophils % (A) 0 %; HCT 39.2 % (39.0-53.0); HGB 12.1 gm/dL (13.0-17.5); Lymphocytes # (A) 1.7 k/uL (1.0-4.8); Lymphocytes % (A) 12 %; MCH 26.4 pg (25.0-35.0); MCV 85.1 fL (80.0-100.0); Mean Platelet Volume 8.9; Monocytes % (A) 8 %; Neutrophils # (A) 10.7 k/uL (1.3-7.7); Neutrophils % (A) 79 %; Platelet Count 306 k/uL (150-450); RDW 12.8 % (11.5-15.5); WBC 13.5 k/uL (3.8-10.6)
[2019-03-22] MEDS: FAMOTIDINE 20 MG TAB PO SCH (07:53)
[2019-03-22] MEDS: SODIUM CHLORIDE 0.9% 1,000 ML IV SCH (07:55)
[2019-03-22 11:50] LABS: Erythrocyte Sedimentation Rate 25 mm/hr (0-15)
[2019-03-22 12:14] VITALS: BP 121/64; PULSE 60; RESP 16; TEMP 98
--- NOTE | 2019-03-22 16:10 | P.DS ---
Providers Date of admission: 03/20/19 15:41 Attending physician: Gali Mak Consults: 03/20/19 15:58 Consult Physician Stat Consulting Provider: Wally Smalls Consult Reason/Comments: Colonic mass, rectal bleeding Do you want consulting provider notified?: Yes Consult Physician Stat Consulting Provider: Zheng Decker Consult Reason/Comments: Colonic mass, rule out lymphoma Do you want consulting provider notified?: Yes 03/20/19 16:36 Consult Physician Routine Consulting Provider: Nicole Mckeon Consult Reason/Comments: U.Colitis Do you want consulting provider notified?: Yes Primary care physician: [facility] Course: 23-year-old pleasant male came in with the severe abdominal pain started today. Patient normally does have multiple bowel movements a day and his bowel movement pattern didn't change patient is fully came in with a severe abdominal pain. Patient does have history of ulcerative colitis which was diagnosed 6 months ago with the clinic biopsy. Patient is on balsalazide patient was having these symptoms for last couple weeks of increased diarrhea because of which patient was started on oral prednisone which she says is not helping patient denied any fever chills patient doesn't have any leukocytosis. CAT scan of the abdomen was obtained which showed significant thickening of the mid descending to sigmoid colon with a very little room in this is a masslike lesion with circumferential thickening. I had a lengthy discussion spent significant amount of time discussing with brine tank tender and radiologist. Malignancy is uncommon at this age but patient probably will need a biopsy plan is to start him on systemic steroids. Possibility of this amount of thickening with ulcerative colitis is low as per gastroenterology, because of which we're obtaining surgical consultation as well. Oncology was consulted by ER physician with concerns of lymphoma which is not uncommon at this age medically Hodgkin's lymphoma and patient is quite a bit anxious regarding this masslike lesion 03/21/2019 Patient was a valid by multiple consultants including oncology the obtained a CAT scan of the chest rule out any lymph node enlargements. There is some nonspecific findings on the CAT scan of the chest beyond which is normal. Patient probably will need a sigmoidoscopy and a biopsy patient was evaluated by general surgery as well. She doesn't have any abdominal pain any more. Patient's CRP and ESR are elevated. 03/22/2019 Gastroneurologist and surgery is recommending transfer to a higher level facility, patient probably will need at least a sigmoidoscopy and biopsy of the sigmoid and descending colon. Patient has significant intramural thickening. Patient had 2 episodes of diarrhea today. Presently on Solu-Medrol 20 IV twice a day his abdominal pain improved. PHYSICAL EXAMINATION: GENERAL: The patient is alert and oriented x3, not in any acute distress. Well developed, well nourished. HEENT: Pupils are round and equally reacting to light. EOMI. No scleral icterus. No conjunctival pallor. Normocephalic, atraumatic. No pharyngeal erythema. No thyromegaly. CARDIOVASCULAR: S1 and S2 present. No murmurs, rubs, or gallops. PULMONARY: Chest is clear to auscultation, no wheezing or crackles. ABDOMEN: Soft, nontender, nondistended, normoactive bowel sounds. No palpable organomegaly. MUSCULOSKELETAL: No joint swelling or deformity. EXTREMITIES: No cyanosis, clubbing, or pedal edema. NEUROLOGICAL: Gross neurological examination did not reveal any focal deficits. SKIN: No rashes. Assessment and Plan Plan: abdominal pain: Probably flareup of ulcerative colitis and because started on systemic steroids yes and CRP are elevated Gastroenterology valuated the patient along with the multiple other consultants for the masslike lesion in intramural thickening of the colon. -Masslike lesion in the abdomen which appears to be within the colon intramural etiology is not clear possibility of malignancy is extremely low as there is no lymph node enlargement CT of the chest did not show any other lymph nodes considering his age the chance of this being a colon cancer is extremely low and the patient did not have this colonic thickening about 6 months ago because of which the possibility of this being malignant mass is extremely low it appears this thickening is secondary to severe inflammation probably from ulcerative colitis oncology evaluated the patient and computed tomography scan of the chest did not show any lymph node enlargements -Leukocytosis can be secondary to ulcerative colitis, now secondary to systemic steroids Patient Condition at Discharge: Fair Plan - Discharge Summary Discharge Rx Participant: No New Discharge Prescriptions: No Action predniSONE 30 mg PO DAILY Balsalazide Disodium [Colazal] 2,250 mg PO AC-TID Discharge Medication List Balsalazide Disodium [Colazal] 2,250 mg PO AC-TID 03/20/19 [History] predniSONE 30 mg PO DAILY 03/20/19 [History] Follow up Appointment(s)/Referral(s): Bria Case MD [Primary Care Provider] - 1-2 days
--- NOTE | 2019-03-22 19:28 | P.PN ---
Subjective Progress Note Date: 03/22/19 Principal diagnosis: Ulcerative colitis Patient states his pain is well-controlled. Has only had a few cramps today. Has had a few loose stools as well. No nausea or vomiting. Plans are currently underway for transfer to [facility] for colorectal surgery and advanced GI evaluation. Objective - Vital Signs Vital signs: Vital Signs Temp 98 F 03/22/19 12:13 Pulse 60 03/22/19 12:13 Resp 16 03/22/19 12:13 BP 121/64 03/22/19 12:13 Pulse Ox 97 03/22/19 12:13 Intake & Output 03/22/19 03/22/19 03/23/19 06:59 18:59 06:59 Intake Total 2450 600 Balance 2450 600 Intake: Intake, IV Titration 900 600 Amount Sodium Chloride 0.9% 1, 900 600 000 ml @ 75 mls/hr IV . [id number] [facility] Rx#:[id number] Oral 1550 Other: Voiding Method Toilet Toilet # Voids 1 - Exam Abdomen: Soft, left-sided tenderness and fullness, no rebound or guarding - Labs CBC & Chem 7: 03/22/19 06:30 03/21/19 07:55 Labs: Abnormal Lab Results - Last 24 Hours (Table) 03/22/19 03/22/19 Range/Units 06:30 06:30 WBC 13.5 H (3.8-10.6) k/uL Hgb 12.1 L (13.0-17.5) gm/dL Neutrophils # 10.7 H (1.3-7.7) k/uL ESR 25 H (0-15) mm/hr C-Reactive Protein 41.6 H (<10.0) mg/L Microbiology - Last 24 Hours (Table) 03/20/19 13:08 Blood Culture - Preliminary Blood No Growth after 24 hours Assessment and Plan (1) Ulcerative colitis Narrative/Plan: 23-year-old male with ulcerative colitis. Significant colonic wall thickening. Continue IV steroids. Agree with plans for transfer to higher level of care. Current Visit: Yes Status: Acute Code(s): K51.90 - ULCERATIVE COLITIS, UNSPECIFIED, WITHOUT COMPLICATIONS SNOMED Code(s): 81660625
--- NOTE | 2019-03-22 19:50 | PN ---
PROGRESS NOTE DATE OF DICTATION: March 22, 2019 Patient is a 23-year-old pleasant white male admitted to hospital with severe left side abdominal pain, abdominal fullness, and bloody diarrhea, which has been progressively worse for the last few days. The patient was diagnosed with ulcerative colitis about 6 months ago and has been maintained on oral mesalamine. He was just started on prednisone 40 mg daily on an outpatient basis 4 weeks ago because of persistent symptoms. CT scan of the abdomen done in the emergency room showed significant thickening of the colon involving the sigmoid and descending colon, most likely from underlying severe inflammatory bowel disease. Doubt malignancy. Oncology saw the patient and recommended a repeat colonoscopy with biopsies. In the meantime, patient was started on empiric IV steroids 20 mg q.8 hours. Symptoms are gradually improving. He continues to have persistent left-sided abdominal pain. He had 2 bowel movements today with small amount of blood. PHYSICAL EXAMINATION: Appears comfortable. No apparent distress. VITAL SIGNS: Stable. Blood pressure is 133/64, pulse rate 60, temperature 98. HEENT examination unremarkable. Conjunctivae pink. Sclerae anicteric. Oral cavity no lesions. NECK: No JVD or lymph node enlargement. CHEST: Clear to auscultation. HEART: Regular rate and rhythm. ABDOMEN: Soft. There was fullness in the left side of the abdomen which was tender. Rest of the abdomen benign. Bowel sounds are positive. No organomegaly. EXTREMITIES: No pedal edema. SKIN no rashes. NEUROLOGIC: Alert and oriented x3. No focal deficits. LABS: WBC 13.5, hemoglobin 12.1, platelets normal. Sed rate is 25. CRP is down to 41. Two days ago it was 61. IMPRESSION: Severe left-sided colitis with significant thickening of the colon involving the sigmoid and descending colon up to the splenic flexure with a CT scan showing almost masslike thickening probably from severe inflammatory bowel disease. Colonoscopy done by Dr. Mendez 6 months ago showed evidence of mild to moderate left-sided colitis. Presently on IV Solu-Medrol 20 mg q.8 hours. Symptoms are gradually improving, but continues to have persistent severe left -sided abdominal pain. RECOMMENDATIONS: After having a lengthy discussion with the patient as well as family regarding further management of inflammatory bowel disease, I recommended transfer to a tertiary institute, and possible opinion from a colorectal surgeon. In the meantime, we will continue with IV steroids. Continue with a full liquid diet and follow him closely. Thank you for this consultation. [place] / [place]: [id number] /
== END 2019-03-22 22:32 | disposition short-term general hospital (02) | DRG 387 ==
LOC: EC 12:15 → 6NMEDSUR 15:41 → 5NMEDONC 03-21 01:14
PROVIDERS: ADMIT Hospitalist; ATTEND Hospitalist
DX: K51.511 Left sided colitis with rectal bleeding (principal); T38.0X5A Adverse effect of glucocorticoids and synthetic analogues, initial encounter; D72.829 Elevated white blood cell count, unspecified; R19.09 Other intra-abdominal and pelvic swelling, mass and lump
CPT/HCPCS: 36415; 71260; 74018; 74177; 80048; 80053; 81001; 82150; 83605; 83690; 85025; 85027; 85652; 86140; 87040; 87324; 96361; 96374; 99285